=== PATIENT | male | born 1960 | race Hispanic/Latino ===

== ENCOUNTER 2020-04-18 00:04 | Emergency (ER) | payer OTHER ==
[~2020-04-18] VITALS: Ht 175.3 cm; Wt 88.5 kg
[2020-04-18] MEDS ORDERED: ACETAMINOPHEN 325 MG TAB PO ONE (00:45)
--- NOTE | 2020-04-18 00:51 | Emergency Department Note ---
History of Present Illnes History of Present Illness Chief Complaint: COVID PUI History of Present Illness This is a 59 year old male PRESENTS TO THE ER C/O COVID-LIKE SYMPTOMS; REPORTS FEVER/CHILLS, BODY ACHES, HEADACHE, SORE THROAT AND DRY COUGH X1 WEEK; REPORTS FIRST COVID TEST WAS NEGATIVE ON 04/12/20 AND PENDING RESULTS FOR SWAB OBTAINED ON 04/14/20; PT DENIES CP OR SOB; V/S/S; SPO2 97% RA; RESP EVEN/UNLABORED; T EMP 100.9 IN TRIAGE;. Historian: Patient Arrival Mode: Car Onset (how long ago): day(s) (7) Location: ALL OVER Quality: BODY ACHES, FEVER, DRY COUGH, SORE THROAT Radiation: Reports non-radiation Severity: mild Onset quality: gradual Duration (how long): day(s) (7) Timing of current episode: constant Progression: unchanged Chronicity: new Context: Reports recent illness (FEVER, CHILLS, BODY ACHES, COUGH) Relieving factors: none Exacerbating factors: none Associated symptoms: Reports cough, Reports fever/chills, Reports nausea/ vomiting (NO VOMITING) Treatments prior to arrival: none Past Medical/Family History Physician Review I have reviewed the patient's past medical and family history. Any updates have been documented here. Past Medical History Recent Fever: Yes Clinical Suspicion of Infectio: Yes New/Unexplained Change in Ment: No Past Medical History: None Past Surgical History: None Social History Smoking Cessation: Never Smoker Any Illegal Drug Use: No Physically hurt or threatened: No Family History Family history of heart diseas: No Other Any Pre-Existing Lines (PICC,: No Review of Systems Review of Systems Constitutional: Reports as per HPI EENTM: Reports no symptoms Cardiovascular: Reports no symptoms Respiratory: Reports as per HPI Gastrointestinal: Reports no symptoms Genitourinary: Reports no symptoms Musculoskeletal: Reports no symptoms Integumentary: Reports no symptoms Neurological: Reports no symptoms Psychological: Reports no symptoms Endocrine: Reports no symptoms Hematological/Lymphatic: Reports no symptoms Physical Exam Related Data Allergies: Uncoded Allergies: PENICLLIN (Allergy, Mild, RASH, 07/02/17) Triage Vital Signs Vital Signs Date Time Temp Pulse Resp B/P (MAP) Pulse Ox O2 Delivery O2 Flow Rate FiO2 04/18/20 00:25 100.9 98 20 135/82 97 Room Air Vital signs reviewed: Yes Physical Exam CONSTITUTIONAL Constitutional: Present well-developed, Present well-nourished HENT HENT: Present normocephalic, Present atraumatic, Present oropharynx c lear/moist, Present nose normal HENT L/R: Present left ext ear normal, Present right ext ear normal EYES Eyes: Reports PERRL, Reports conjunctivae normal NECK Neck: Present ROM normal PULMONARY Pulmonary: Present effort normal, Present breath sounds normal CARDIOVASCULAR Cardiovascular: Present regular rhythm, Present heart sounds normal, Present capillary refill normal, Present normal rate GASTROINTESTINAL Abdominal: Present soft, Present nontender, Present bowel sounds normal GENITOURINARY Genitourinary: Present exam deferred SKIN Skin: Present warm, Present dry MUSCULOSKELETAL Musculoskeletal: Present ROM normal NEUROLOGICAL Neurological: Present alert, Present oriented x 3, Present no gross motor or sensory deficits PSYCHOLOGICAL Psychological: Present mood/affect normal, Present judgement normal Results Imaging Imaging results reviewed: Yes Impressions Procedure: [id number] DX/CHEST SINGLE (PORTABLE) Exam Date: 04/18/20 Exam Time: 040 REPORT STATUS: Signed Examination: Single AP view of the chest. COMPARISON: None. INDICATION: Cough, fever, body aches IMPRESSION: 1. Lines and Tubes: None 2. Lungs are well inflated. Patchy bilateral interstitial and alveolar opacities, worse in the left midlung likely representing multifocal pneumonia, including viral 3. Cardiomediastinal silhouette is normal. Pulmonary vasculature is normal. 4. No acute bony abnormalities. Signed by: Dr. Magaly Kincaid M.D. on 04/18/2020 4:19 AM Dictated By: MAGALY KINCAID MD 8 Transcribed By: MONICA on 04/18/20418 COPY TO: DAVID STEPHENS MD~ Assessment & Plan Medical Decision Making MDM PT WITH VIRAL SYMPTOMS/COVID SYMPTOMS CXR ORDERED TO EVAL FOR PNEUMONIA TYLENOL 975 MG PO ORDERED PT DISCHARGED HOME PRESCRIBED ZPAK INSTRUCTED TO QUARANTINE FOR NEXT 14 DAYS. INSTRUCTED TO LAY AND SLEEP ON SIDES AND STOMACH NOT BACK Reassessment Reassessment time: 04:24 Reassessment PT STILL IN NO DISTRESS, OXYGEN SATURATION 96% ON ROOM AIR, RR 18 Assessment & Plan Final Impression: (1) COVID-19 (2) Viral pneumonia Depart Disposition: ADMITTED Last Vital Signs Date Time Temp Pulse Resp B/P (MAP) Pulse Ox O2 Delivery O2 Flow Rate FiO2 04/18/20 00:25 100.9 98 20 135/82 97 Room Air Home Meds No Active Prescriptions or Reported Meds Medications in the ED Acetaminophen 975 mg ONCE ONCE PO Last administered on 04/18/20at 00:42; Admin Dose 975 MG; Start 04/18/20 at 00:45; Stop 04/18/20 at 00:46; Status DC DAVID STEPHENS MD Apr 18, 2020 00:51
--- NOTE | 2020-04-18 04:22 | Diagnostic Imaging Report ---
Examination: Single AP view of the chest. COMPARISON: None. INDICATION: Cough, fever, body aches IMPRESSION: 1. Lines and Tubes: None 2. Lungs are well inflated. Patchy bilateral interstitial and alveolar opacities, worse in the left midlung likely representing multifocal pneumonia, including viral 3. Cardiomediastinal silhouette is normal. Pulmonary vasculature is normal. 4. No acute bony abnormalities. Signed by: Dr. Oskar Francisco M.D. on 04/18/2020 4:19 AM
[2020-04-18 04:34] VITALS: BP 136/87
== END 2020-04-18 04:40 | disposition home or self-care (01) ==
LOC: ER 00:33
DX: U07.1 COVID-19 (principal); J12.9 Viral pneumonia, unspecified; R05 Cough
CPT/HCPCS: 71045; 99283

== ENCOUNTER 2020-04-27 10:30 | Inpatient (IN) | payer OTHER ==
[~2020-04-27] VITALS: Ht 175.3 cm; Wt 88.5 kg
[2020-04-27] MEDS ORDERED: SODIUM CHLORIDE 0.9% 1000ML 1,000 ML IV STA (10:37)
[2020-04-27] MEDS ORDERED: DEXAMETHASONE SOD PHOS INJ 4 MG/ML VIAL IV ONE (10:45)
[2020-04-27 10:55] LABS: BASOPHILS # (AUTO) 0.1 (0.0-0.1); BASOPHILS % 0.9 % (0.0-1.0); EOSINOPHILS # (AUTO) 0.2 (0.0-0.4); EOSINOPHILS % 2.3 % (0.0-6.0); HEMATOCRIT 46.7 % (38.2-49.6); HEMOGLOBIN 15.7 g/dL (14.0-18.0); LYMPHOCYTES # (AUTO) 1.4 (1.0-3.2); LYMPHOCYTES % 14.4 % (18.0-39.1); MEAN CORPUSCULAR HGB CONC 33.6 g/dL (31-35); MEAN CORPUSCULAR VOLUME 95.1 fL (81-99); MONOCYTES # (AUTO) 0.8 (0.2-0.8); MONOCYTES % 8.7 % (4.4-11.3); NEUTROPHILS # (AUTO) 6.9 (2.1-6.9); NEUTROPHILS % 71.7 % (38.7-80.0); PLATELET COUNT 530 x10e3/uL (140-360); RED BLOOD COUNT 4.91 x10e6/uL (4.3-5.7); RED CELL DISTRIBUTION WIDTH 13.6 % (11.7-14.4)
[2020-04-27] MEDS ORDERED: ACETAMINOPHEN 325 MG TAB PO ONE (11:00)
[2020-04-27] MEDS ORDERED: ALBUTEROL SULFATE HFA 8GM INHALATION AEROSOL INH PRN (11:15)
[2020-04-27] MEDS ORDERED: DEXAMETHASONE SOD PHOS INJ 4 MG/ML VIAL ONE (11:31)
[2020-04-27 11:33] LABS: ALANINE AMINOTRANSFERASE 92 IU/L (0-55); ALBUMIN 2.4 g/dL (3.5-5.0); ALBUMIN/GLOBULIN RATIO 0.5 (0.8-2.0); ALKALINE PHOSPHATASE 245 IU/L (40-150); ANION GAP 16.3 mmol/L (8-16); BLOOD UREA NITROGEN 9 mg/dL (7-26); BUN/CREATININE RATIO 12 (6-25); CALCIUM 8.5 mg/dL (8.4-10.2); CARBON DIOXIDE 21 mmol/L (22-29); CHLORIDE 105 mmol/L (98-107); CREATINE KINASE 47 IU/L (30-200); CREATININE, SERUM 0.75 mg/dL (0.72-1.25); EST GLOMERULAR FILTRATION RATE > 60 ML/MIN (60-); GLUCOSE 149 mg/dL (74-118); POTASSIUM 4.3 mmol/L (3.5-5.1); PROTHROMBIN TIME 13.7 seconds (11.9-14.5); SODIUM 138 mmol/L (136-145)
[2020-04-27 11:34] LABS: PARTIAL THROMBOPLASTIN TIME 28.6 seconds (23.8-35.5)
--- NOTE | 2020-04-27 11:46 | Emergency Department Note ---
History of Present Illnes History of Present Illness Chief Complaint: COVID PUI History of Present Illness This is a 59 year old male pt c/o covid positive 6 days ago, cough/F/C/body aches/N/V/D x 2 weeks now with progressive sob increased over last 4 days. non smoker. pt tachypneic and hypoxic on arrival with O2 sats 83% room air. pt aaoxx4. ambulatory. pt states any excertion increased fatigue and sob. Historian: Patient Arrival Mode: Car Lining Repairer Required: No Onset (how long ago): week(s) (2) Location: lungs Quality: SOB Radiation: Reports non-radiation Severity: moderate Onset quality: gradual Duration (how long): day(s) (sob) Timing of current episode: constant Progression: worsening Chronicity: new Context: Reports recent illness Relieving factors: none Exacerbating factors: none Associated symptoms: Reports denies other symptoms Treatments prior to arrival: none Past Medical/Family History Physician Review I have reviewed the patient's past medical and family history. Any updates have been documented here. Past Medical History Recent Fever: No Clinical Suspicion of Infectio: No New/Unexplained Change in Ment: No Past Medical History: None Past Surgical History: None Social History Smoking Cessation: Never Smoker Counseling Performed: No Alcohol Use: None Any Illegal Drug Use: No TB Exposure/Symptoms: No Physically hurt or threatened: No Family History Family history of heart diseas: No Other Any Pre-Existing Lines (PICC,: No Review of Systems Review of Systems Constitutional: Reports as per HPI EENTM: Reports no symptoms Cardiovascular: Reports no symptoms Respiratory: Reports as per HPI, Reports cough, Reports dyspnea, Reports dyspnea on exertion Gastrointestinal: Reports no symptoms Genitourinary: Reports no symptoms Musculoskeletal: Reports as per HPI Integumentary: Reports no symptoms Neurological: Reports no symptoms Psychological: Reports no symptoms Endocrine: Reports no symptoms Hematological/Lymphatic: Reports no symptoms Physical Exam Related Data Allergies: Uncoded Allergies: PENICLLIN (Allergy, Mild, RASH, 07/02/17) Triage Vital Signs Vital Signs Date Time Temp Pulse Resp B/P (MAP) Pulse Ox O2 Delivery O2 Flow Rate FiO2 04/27/20 10:52 99.3 104 48 148/85 83 Room Air 04/27/20 11:01 6.0 Vital signs reviewed: Yes Physical Exam CONSTITUTIONAL Constitutional: Present well-developed, Present well-nourished HENT HENT: Present normocephalic, Present atraumatic, Present oropharynx clear/moist, Present nose normal HENT L/R: Present left ext ear normal, Present right ext ear normal EYES Eyes: Reports PERRL, Reports conjunctivae normal NECK Neck: Present ROM normal PULMONARY Pulmonary: Present respiratory distress (tachypnea), Present other (decr BS's throughout) CARDIOVASCULAR Cardiovascular: Present regular rhythm, Present heart sounds normal, Present capillary refill normal, Present normal rate GASTROINTESTINAL Abdominal: Present soft, Present nontender, Present bowel sounds normal GENITOURINARY Genitourinary: Present exam deferred SKIN Skin: Present warm, Present dry MUSCULOSKELETAL Musculoskeletal: Present ROM normal NEUROLOGICAL Neurological: Present alert, Present oriented x 3, Present no gross motor or sensory deficits PSYCHOLOGICAL Psychological: Present mood/affect normal, Present judgement normal Results Laboratory Result Diagram: 04/27/20 1040 04/27/20 1040 Laboratory Laboratory Tests Test 04/27/20 10:40 White Blood Count 9.59 x10e3/uL (4.8-10.8) Red Blood Count 4.91 x10e6/uL (4.3-5.7) Hemoglobin 15.7 g/dL (14.0-18.0) Hematocrit 46.7 % (38.2-49.6) Mean Corpuscular Volume 95.1 fL (81-99) Mean Corpuscular Hemoglobin 32.0 pg (28-32) Mean Corpuscular Hemoglobin Concent 33.6 g/dL (31-35) Red Cell Distribution Width 13.6 % (11.7-14.4) Platelet Count 530 x10e3/uL (140-360) Neutrophils (%) (Auto) 71.7 % (38.7-80.0) Lymphocytes (%) (Auto) 14.4 % (18.0-39.1) Monocytes (%) (Auto) 8.7 % (4.4-11.3) Eosinophils (%) (Auto) 2.3 % (0.0-6.0) Basophils (%) (Auto) 0.9 % (0.0-1.0) Neutrophils # (Auto) 6.9 (2.1-6.9) Lymphocytes # (Auto) 1.4 (1.0-3.2) Monocytes # (Auto) 0.8 (0.2-0.8) Eosinophils # (Auto) 0.2 (0.0-0.4) Basophils # (Auto) 0.1 (0.0-0.1) Absolute Immature Granulocyte (auto 0.19 x10e3/uL (0-0.1) Prothrombin Time 13.7 seconds (11.9-14.5) Prothromb Time International Ratio 1.00 Activated Partial Thromboplast Time 28.6 seconds (23.8-35.5) Sodium Level 138 mmol/L (136-145) Potassium Level 4.3 mmol/L (3.5-5.1) Chloride Level 105 mmol/L (98-107) Carbon Dioxide Level 21 mmol/L (22-29) Anion Gap 16.3 mmol/L (8-16) Blood Urea Nitrogen 9 mg/dL (7-26) Creatinine 0.75 mg/dL (0.72-1.25) Estimat Glomerular Filtration Rate > 60 ML/MIN (60-) BUN/Creatinine Ratio 12 (6-25) Glucose Level 149 mg/dL (74-118) Calcium Level 8.5 mg/dL (8.4-10.2) Total Bilirubin 0.5 mg/dL (0.2-1.2) Aspartate Amino Transf (AST/SGOT) 54 IU/L (5-34) Alanine Aminotransferase (ALT/SGPT) 92 IU/L (0-55) Alkaline Phosphatase 245 IU/L (40-150) Creatine Kinase 47 IU/L (30-200) Creatine Kinase MB 1.10 ng/mL (0-5.0) Troponin I 0.004 ng/mL (0-0.300) B-Type Natriuretic Peptide < 10.0 pg/mL (0-100) Total Protein 7.6 g/dL (6.5-8.1) Albumin 2.4 g/dL (3.5-5.0) Globulin 5.2 g/dL (2.3-3.5) Albumin/Globulin Ratio 0.5 (0.8-2.0) Lab results reviewed: Yes Imaging Imaging results reviewed: Yes Impressions EXAMINATION: CHEST SINGLE (PORTABLE) INDICATION: Shortness of breath, cough COMPARISON: Chest radiograph 04/18/2020 FINDINGS: LINES/TUBES:EKG leads overlie the chest. LUNGS:The lungs are moderately inflated. Interval increase in bilateral predominantly peripheral multifocal consolidative opacities. PLEURA:No pleural effusion or pneumothorax. MEDIASTINUM:The cardiomediastinal silhouette appears unchanged in size and shape. BONES/SOFT TISSUES:No acute osseous injury. ABDOMEN:No free air under the diaphragm. IMPRESSION: Interval increase in bilateral multifocal pneumonia. Signed by: Mulu Hauser MD on 04/27/2020 11:47 AM Procedures 12 Lead ECG Interpretation ECG Interpretation : ECG: ECG 1 Lining Repairer: Interpreted by ED physician Date: Apr 27, 2020 Time: 10:38 Rhythm: sinus tachycardia (102) Rate: tachycardia (102) QRS axis: normal ST segments normal: Yes T waves normal: Yes Clinical Impression: abnormal ECG Critical Care Time Total Critical Care Time (min): 30 Critcal care necessary due to: respiratory failure Critcal care time spent by me: discussion w consultants, discussion w primary provider, evaluation patient response to tx, examination of patient, order/perform tx or interventions, order/review laboratory studies, pulse oximetry, re-evaluation of patient condition Assessment & Plan Medical Decision Making MDM pt with known COVID + pneumonia now with incr SOB, O2 sat 83% on RA, tachypneic - check cbc, chem, cardiacs, bnp, ecg, cxr - r/o bacterial pneumonia, chf, STEMI/NSTEMI, electrolyte abnl, renal insuff. Pt sat now 94% on 6L NC - will initiate AirVo2 high-flow O2, Rocephin/Azithro, Decadron IV 6 mg Reassessment Reassessment d/w Dr Ambrocio for admission, Stephen Elmore Assessment & Plan Final Impression: (1) Pneumonia due to COVID-19 virus (2) Hypoxia Depart Disposition: ADMITTED Last Vital Signs Date Time Temp Pulse Resp B/P (MAP) Pulse Ox O2 Delivery O2 Flow Rate FiO2 04/27/20 11:02 102 97 Nasal Cannula 04/27/20 11:01 6.0 04/27/20 10:52 99.3 48 Home Meds No Active Prescriptions or Reported Meds Medications in the ED Sodium Chloride 1,000 ml @ 0 mls/hr Q0M STAT IV ; Start 04/27/20 at 10:37; Stop 04/27/20 at 10:38 Azithromycin 250 ml @ 250 mls/hr Q24H IV ; Start 04/27/20 at 10:45; Stop 05/04/20 at 10:44 Dexamethasone Sodium Phosphate 6 mg NOW ONCE IV ; Start 04/27/20 at 10:45; Stop 04/27/20 at 10:46 Acetaminophen 975 mg ONCE ONCE PO ; Start 04/27/20 at 11:00; Stop 04/27/20 at 11:01 Sodium Chloride 1,000 ml @ 125 mls/hr Q8H IV ; Start 04/27/20 at 11:15; Stop 04/27/20 at 19:14; Status UNV Albuterol 2 gm RQ2H PRN INH SHORTNESS OF BREATH; Start 04/27/20 at 11:15; Stop 05/27/20 at 11:14; Status UNV PAWAN KRUGER MD Apr 27, 2020 11:46
--- NOTE | 2020-04-27 11:51 | Diagnostic Imaging Report ---
EXAMINATION: CHEST SINGLE (PORTABLE) INDICATION: Shortness of breath, cough COMPARISON: Chest radiograph 04/18/2020 FINDINGS: LINES/TUBES:EKG leads overlie the chest. LUNGS:The lungs are moderately inflated. Interval increase in bilateral predominantly peripheral multifocal consolidative opacities. PLEURA:No pleural effusion or pneumothorax. MEDIASTINUM:The cardiomediastinal silhouette appears unchanged in size and shape. BONES/SOFT TISSUES:No acute osseous injury. ABDOMEN:No free air under the diaphragm. IMPRESSION: Interval increase in bilateral multifocal pneumonia. Signed by: Mulu Hauser MD on 04/27/2020 11:47 AM
[2020-04-27] MEDS: AZITHROMYCIN 500MG/NS 250 ML 250 ML IV SCH (12:15)
[2020-04-27] MEDS: CEFTRIAXONE SOD 1 GM/NS 50 ML 50 ML IV SCH (12:16)
[2020-04-27] MEDS: SODIUM CHLORIDE 0.9% 1000ML 1,000 ML IV SCH ×2 (13:13→17:33)
--- NOTE | 2020-04-27 15:06 | NUR ---
Recvd patient from ER, AAOx3, ON O2 with AIRVO 40L, On Telemetry, denies any oain, no distress noted, call light in reach. Dr Leon here to see patient
[2020-04-27 15:45] VITALS: BP 120/84
[2020-04-27] MEDS ORDERED: ENOXAPARIN INJ 80 MG/0.8 ML SYR SC SCH (17:00)
--- NOTE | 2020-04-27 18:02 | NUR ---
Patient back from CT , Stable, Notified Dr Lenny Elmore regarding the consult.
--- NOTE | 2020-04-27 18:10 | Diagnostic Imaging Report ---
EXAM: CT Chest WITH contrast 04/27/2020 5:41 PM INDICATION: Dyspnea and chest pain clinically concerning for pulmonary embolism. COMPARISON: Same day chest x-rays. TECHNIQUE: Chest was scanned utilizing a multidetector helical scanner from the lung apex through the level of the adrenal glands with administration of IV contrast. Coronal and sagittal reformations were obtained. Routine protocol was performed. IV CONTRAST: 100 mL of Omnipaque 300 COMPLICATIONS: None RADIATION DOSE: Total DLP: 469.82 mGy*cm Estimated effective dose: (DLP x 0.014 x size factor) mSv CTDIvol has been reviewed. It is below the limits set by the Radiation Protocol Committee (RPC). Dose modulation, iterative reconstruction, and/or weight based adjustment of the mA/kV was utilized to reduce the radiation dose to as low as reasonably achievable. FINDINGS: LINES/ TUBES: None. VASCULAR: There are no filling defects within the pulmonary arteries to the segmental level. The main pulmonary artery has normal caliber measuring 2.4 cm. The thoracic aorta has normal enhancement. The ascending and descending aorta have normal caliber measuring 3.2 cm and 2.6 cm, respectively. LUNGS AND AIRWAYS: There is multifocal consolidative and groundglass opacities throughout both lungs. The central airways are patent and the trachea is midline. PLEURA: The pleural spaces are clear. HEART AND MEDIASTINUM: The thyroid gland is normal. There are multiple prominent mediastinal lymph nodes measuring up to 7 mm in short axis, none of which meet criteria for pathologic enlargement. No axillary lymphadenopathy. The heart is normal in size. There is no pericardial effusion. UPPER ABDOMEN: Unremarkable. BONES: There is multilevel degenerative disease of the spine with no suspicious osteolytic or osteoblastic lesions. SOFT TISSUES: Unremarkable. IMPRESSION: 1. No evidence of pulmonary embolism. 2. Consolidative and patchy airspace opacities throughout both lungs which most likely represents multifocal pneumonia, likely viral. Prominent mediastinal lymph nodes are likely reactive. An underlying mass cannot be excluded. Recommend repeat chest CT in 3 months to ensure resolution of these findings. Signed by: Kelsi Funez MD on 04/27/2020 6:06 PM
[2020-04-27] MEDS ORDERED: DEXTROSE 50% SYRINGE 50 ML IV PRN (19:00)
[2020-04-27] MEDS ORDERED: ACETAMINOPHEN 325 MG TAB PO PRN (19:00)
[2020-04-27] MEDS ORDERED: ONDANSETRON HCL INJ 2MG/ML 2ML 2 MG/ML VIAL IV PRN (19:15)
[2020-04-27] MEDS ORDERED: HYDROCODONE/CHLORPHENIRAMINE 5 ML LIQCR PO PRN (19:15)
[2020-04-27 20:00] VITALS: BP 125/88
--- NOTE | 2020-04-27 20:00 | Consultation ---
DATE OF CONSULTATION: HISTORY OF PRESENT ILLNESS: This is a 59-year-old male who had COVID test 6 days ago, was positive, cough, and shortness of breath. He is telling me he has been sick for more than 2 weeks with fever, chills, nausea, vomiting, body aches, but the cough and shortness of breath started few days ago. PAST MEDICAL HISTORY: Denies. PAST SURGICAL HISTORY: Denies. ALLERGIES: NKA. SOCIAL HISTORY: There is no smoking, drug abuse, or alcohol abuse. FAMILY HISTORY: Unremarkable. LABORATORY DATA: White count is 9.5, hemoglobin 15. COVID is still pending. Sodium 138, potassium 4.3. Creatinine 0.75. Chest x-ray showed bilateral multifocal pneumonia. PHYSICAL EXAMINATION: GENERAL: He is currently alert and oriented. VITAL SIGNS: Stable, currently afebrile. HEENT: He is not icteric. NECK: Supple. CHEST: Clear. HEART: S1, S2. ABDOMEN: Soft. IMPRESSION: 1. Pneumonia, concerned it is COVID-19 pneumonia. Put on Rocephin 1 g daily 5 days, azithromycin 500 mg daily for 3 days, Lovenox 0.5 mg/kg q.12 hours. We will add dexamethasone 6 mg daily for 10 days. 2. Shortness of breath. We will obtain CTA to rule out pulmonary embolism. 3. We will follow. MD GRZEGORZ Smalls/RADHA /[id number]
[2020-04-27] MEDS ORDERED: HYDRALAZINE HCL 20 MG/ML VIAL IV PRN (20:15)
[2020-04-27] MEDS: INSULIN REGULAR, HUMAN 100 UNIT/1 ML 3ML VIAL SQ SCH (21:00)
[2020-04-27] MEDS: ASCORBIC ACID 500 MG TAB PO SCH (21:19)
--- NOTE | 2020-04-27 21:36 | Consultation ---
DATE OF CONSULTATION: CHIEF COMPLAINT: Dyspnea and cough. HISTORY OF PRESENT ILLNESS: The patient reports difficulty breathing for the past 4 days. He also says he tested positive for COVID. He also notes some prior fevers and congestion. He is not having any abdominal pain. There is no nausea or vomiting. PAST MEDICAL HISTORY: 1. No prior history of asthma or COPD. 2. No prior history of cardiac disease. 3. No prior history of asthma. ALLERGIES: THE PATIENT IS ALLERGIC TO PENICILLIN. PAST SURGICAL HISTORY: Noncontributory. FAMILY HISTORY: Noncontributory. SOCIAL HISTORY: The patient is not an active smoker or drinker. REVIEW OF SYSTEMS: There is no history of fevers. He is having shortness of breath. He reports some cough. He has no chest pain. There is no nausea or vomiting. He has no leg edema. PHYSICAL EXAMINATION: VITAL SIGNS: The patient is afebrile. The blood pressure is 123/82 and saturation is 99%. He is on an Airvo at 40 L with 60%. HEENT: Shows no facial swelling or erythema. LYMPHATIC: Shows no submandibular, cervical, or supraclavicular adenopathy. CARDIAC: Reveals a regular rate and rhythm with normal S1 and S2. LUNGS: Auscultation of lungs reveals rhonchorous breath sounds bilaterally. There is no wheezing. ABDOMEN: Soft and nontender. There is no rebound or guarding. EXTREMITIES: Shows no leg edema or calf tenderness. There is no cyanosis or clubbing. SKIN: Shows no rashes. NEUROLOGICAL: Shows no focal abnormalities. LABORATORY DATA: White blood cell count is 9.6 and the hemoglobin is 15.7. The platelet count is 530. BUN to creatinine ratio is normal. The carbon dioxide is 21. The AST is 54 and the ALT is 92. Albumin is 2.4. RADIOGRAPHIC DATA: Chest CT scan shows patchy bilateral airspace disease in both lungs. IMPRESSION: 1. Acute respiratory failure. 2. Viral pneumonia and COVID-19 infection. 3. Metabolic acidosis. 4. Hyperglycemia. 5. Viral hepatitis. PLAN: 1. Continue antibiotics. 2. Rescue inhaler as needed. 3. Lovenox. 4. Dexamethasone for 10 days. 5. Judicious use of IV fluids. 6. Monitor and control blood sugars. MD DIEGO Young/MODL /[id number]
[2020-04-27 22:55] VITALS: BP 125/88
[2020-04-28] VITALS (8 sets, daily range): BP systolic 115–134; BP diastolic 83–96
[2020-04-28 04:17] LABS: BASOPHILS % 0.3 % (0.0-1.0); EOSINOPHILS % 0.4 % (0.0-6.0); HEMATOCRIT 40.5 % (38.2-49.6); HEMOGLOBIN 13.9 g/dL (14.0-18.0); LYMPHOCYTES # (AUTO) 1.4 (1.0-3.2); LYMPHOCYTES % 14.9 % (18.0-39.1); MEAN CORPUSCULAR HEMOGLOBIN 33.9 pg (28-32); MEAN CORPUSCULAR HGB CONC 34.3 g/dL (31-35); MEAN CORPUSCULAR VOLUME 98.8 fL (81-99); MONOCYTES # (AUTO) 0.6 (0.2-0.8); MONOCYTES % 6.8 % (4.4-11.3); NEUTROPHILS # (AUTO) 7.1 (2.1-6.9); NEUTROPHILS % 76.5 % (38.7-80.0); PLATELET COUNT 485 x10e3/uL (140-360); RED CELL DISTRIBUTION WIDTH 13.3 % (11.7-14.4)
[2020-04-28] MEDS: ENOXAPARIN SOD INJ 40 MG/0.4 ML SYR SC SCH ×2 (04:17→16:05)
[2020-04-28 04:34] LABS: ALANINE AMINOTRANSFERASE 92 IU/L (0-55); ALBUMIN 2.1 g/dL (3.5-5.0); ALBUMIN/GLOBULIN RATIO 0.5 (0.8-2.0); ALKALINE PHOSPHATASE 244 IU/L (40-150); ANION GAP 13.6 mmol/L (8-16); BLOOD UREA NITROGEN 12 mg/dL (7-26); BUN/CREATININE RATIO 17 (6-25); CALCIUM 7.9 mg/dL (8.4-10.2); CARBON DIOXIDE 21 mmol/L (22-29); CHLORIDE 108 mmol/L (98-107); CREATININE, SERUM 0.72 mg/dL (0.72-1.25); EST GLOMERULAR FILTRATION RATE > 60 ML/MIN (60-); GLUCOSE 117 mg/dL (74-118); POTASSIUM 4.6 mmol/L (3.5-5.1); SODIUM 138 mmol/L (136-145)
[2020-04-28 04:42] LABS: CREATINE KINASE 29 IU/L (30-200)
[2020-04-28] MEDS: INSULIN REGULAR, HUMAN 100 UNIT/1 ML 3ML VIAL SQ SCH ×4 (07:30→20:40)
[2020-04-28] MEDS ORDERED: SODIUM CHLORIDE 0.9% 250ML 250 ML ONE (07:49)
[2020-04-28] MEDS: FAMOTIDINE 20 MG TAB PO SCH ×2 (08:52→16:05)
[2020-04-28] MEDS: CHOLECALCIFEROL 400 UNIT TAB PO SCH (08:52)
[2020-04-28] MEDS: ASCORBIC ACID 500 MG TAB PO SCH ×2 (08:52→16:05)
[2020-04-28] MEDS: ZINC SULFATE 220 MG CAP PO SCH ×2 (08:52→16:05)
[2020-04-28] MEDS: DEXAMETHASONE SOD PHOS INJ 4 MG/ML VIAL IV SCH (08:52)
[2020-04-28] MEDS: AZITHROMYCIN 500MG/NS 250 ML 250 ML IV SCH (10:09)
[2020-04-28] MEDS ORDERED: IOPAMIDOL 300MG/ML 100 ML INFUS..BTL IV ONE (10:55)
[2020-04-28] MEDS ORDERED: SODIUM CHLORIDE 0.9% INJ 50 ML BAG IV ONE (10:56)
--- NOTE | 2020-04-28 10:58 | Progress Note ---
DATE: SUBJECTIVE: The patient is afebrile. He has required oxygen and is now on an Airvo at 40 L with 91% oxygen. PHYSICAL EXAMINATION: VITAL SIGNS: The patient is afebrile. The blood pressure is 126/86 and saturation is 100% on the Airvo. Pulse is 94. HEENT: Shows no facial swelling or erythema. CARDIAC: Reveals regular rate and rhythm with normal S1 and S2. LUNGS: Auscultation of lungs reveals crackles at the bases. There is no wheezing. ABDOMEN: Soft and nontender. There is no rebound or guarding. EXTREMITIES: Shows no leg edema or calf tenderness. There is no cyanosis or clubbing. SKIN: Shows no rashes. NEUROLOGICAL: Shows no focal abnormalities. LABORATORY DATA: White blood cell count is 9.22 and the hemoglobin is 13.9. The platelet count is 485. BUN to creatinine ratio is normal. Other electrolytes are within normal limits. Albumin is 2.1. IMPRESSION: 1. Acute respiratory failure. 2. Viral pneumonia and COVID-19 infection. 3. Hyperglycemia. 4. Viral hepatitis. PLAN: 1. Continue Airvo. 2. Transfer to [facility]. 3. Lovenox. 4. Dexamethasone. 5. Monitor and control blood sugars. 6. Speech therapy evaluation. Efrain Elmore MD [facility]/MODL /[id number]
[2020-04-28] MEDS: CEFTRIAXONE SOD 1 GM/NS 50 ML 50 ML IV SCH (11:58)
--- NOTE | 2020-04-28 17:48 | NUR ---
1. Pneumonia, concerned it is COVID-19 pneumonia. Put on Rocephin 1 g daily 5 days, azithromycin 500 mg daily for 3 days, Lovenox 0.5 mg/kg q.12 hours. We will add dexamethasone 6 mg daily for 10 days. 2. Shortness of breath. We will obtain CTA to rule out pulmonary embolism. 3. We will follow.[id number]
--- NOTE | 2020-04-28 19:00 | NUR ---
Report given to oncoming nurse of patient's status. No s/s of acute distress noted. Side rails upx2, call light within reach.
--- NOTE | 2020-04-28 19:50 | NUR ---
shift report received from Kendy MOYA, patient seen sitting high fowlers position in bed, with oxygen therapy in place, no distress noted, awake alert, pending order for IMCU placement patent made aware that as soon as bed available he will be moved , remain on telemetry for safety, patient placed on cont pulse oximetry for added safety
--- NOTE | 2020-04-28 19:50 | NUR ---
TELEMETRY REPORTING SR 90'S, PATIENT PLACED ON CONT PULSE OXIMETRY FOR ADDED SAFETY UNTIL TRANSFERRED
--- NOTE | 2020-04-28 19:55 | Progress Note ---
DATE: SUBJECTIVE: Mr. Pelayo is on oxygen 40 with Airvo at 91%. PHYSICAL EXAMINATION: GENERAL: Alert and oriented. VITAL SIGNS: Stable, afebrile. HEENT: He is not icteric. NECK: Supple. CHEST: Clear. IMPRESSION: Coronavirus disease-19 pneumonia. The patient is going to be transferred to [facility]. Continued oxygenation. Continue plan as ordered. Rocephin 1 g daily, azithromycin, and Decadron. The patient who has been sick for more than 2 weeks now. We will follow. MD GRZEGORZ Smalls/MODL /[id number]
--- NOTE | 2020-04-28 20:20 | NUR ---
MD WHITE MADE AWARE THAT PATIENT WILL BE TRANSFERRED TO [facility] ICU SOON BED MADE AVAILABLE, CHUTE GREASER AND CHARGE MADE AWARE
--- NOTE | 2020-04-28 21:18 | NUR ---
SPOKE TO RUBBER DOWN AND MADE AWARE OF NEGATIVE COVID SWAB ON 04/27/20. RECEIVED VERBAL OK FROM DR. CHAU'S RUBBER DOWN, KOKO Neff, TO MOVE TO COVID ICU AND ORDER TO RE-SWAB.
--- NOTE | 2020-04-28 23:25 | NUR ---
PER BILINGUAL SALES CONSULTANT SHIRLEY PATIENT IS TO BE TRANSFERRED TO COVID ICU UNIT, REPORT GIVEN TO EDGE CUTTER, PT PENDING TRANFER TO CICU BED 14, PATIENT WILL BE RETESTED FOR COVID-19 BEFORE TRANSFER PER MD ORDER
[2020-04-29] VITALS (27 sets, daily range): BP systolic 89–125; BP diastolic 52–84
--- NOTE | 2020-04-29 00:24 | NUR ---
ivettid reswab completed, pt transferred via wheelchair by FELLER MACHINE OPERATOR DAMARIS AND RT TO CICU BED 14
--- NOTE | 2020-04-29 02:10 | NUR ---
Pump Operator called pt's and spoke with daughter, Clementina ([phone]), to offer emotional/spiritual support. Pt's daughter requested clinical information concerning her father's status. Forwarded her request to clinical staff. Provided prayer and information on how to reach audience coordinator. Will follow as able. KIMBERLY [facility] Department O: [phone]
[2020-04-29] MEDS: ENOXAPARIN SOD INJ 40 MG/0.4 ML SYR SC SCH ×2 (05:06→17:38)
[2020-04-29 07:01] LABS: ALANINE AMINOTRANSFERASE 102 IU/L (0-55); ALBUMIN 2.3 g/dL (3.5-5.0); ALBUMIN/GLOBULIN RATIO 0.5 (0.8-2.0); ALKALINE PHOSPHATASE 247 IU/L (40-150); ANION GAP 13.3 mmol/L (8-16); BLOOD UREA NITROGEN 16 mg/dL (7-26); BUN/CREATININE RATIO 22 (6-25); CALCIUM 8.2 mg/dL (8.4-10.2); CARBON DIOXIDE 23 mmol/L (22-29); CHLORIDE 107 mmol/L (98-107); CREATININE, SERUM 0.73 mg/dL (0.72-1.25); EST GLOMERULAR FILTRATION RATE > 60 ML/MIN (60-); GLUCOSE 91 mg/dL (74-118); POTASSIUM 4.3 mmol/L (3.5-5.1); SODIUM 139 mmol/L (136-145)
[2020-04-29 07:23] LABS: BASOPHILS # (AUTO) 0.1 (0.0-0.1); BASOPHILS % 0.5 % (0.0-1.0); EOSINOPHILS # (AUTO) 0.1 (0.0-0.4); EOSINOPHILS % 0.9 % (0.0-6.0); HEMATOCRIT 42.3 % (38.2-49.6); HEMOGLOBIN 14.6 g/dL (14.0-18.0); LYMPHOCYTES # (AUTO) 2.1 (1.0-3.2); LYMPHOCYTES % 17.3 % (18.0-39.1); MEAN CORPUSCULAR HGB CONC 34.5 g/dL (31-35); MEAN CORPUSCULAR VOLUME 95.5 fL (81-99); MONOCYTES # (AUTO) 0.9 (0.2-0.8); MONOCYTES % 7.3 % (4.4-11.3); NEUTROPHILS # (AUTO) 8.8 (2.1-6.9); NEUTROPHILS % 73.1 % (38.7-80.0); PLATELET COUNT 538 x10e3/uL (140-360); RED BLOOD COUNT 4.43 x10e6/uL (4.3-5.7); RED CELL DISTRIBUTION WIDTH 13.4 % (11.7-14.4)
[2020-04-29] MEDS: INSULIN REGULAR, HUMAN 100 UNIT/1 ML 3ML VIAL SQ SCH ×4 (07:29→21:00)
[2020-04-29] MEDS: ASCORBIC ACID 500 MG TAB PO SCH ×2 (10:40→17:38)
[2020-04-29] MEDS: FAMOTIDINE 20 MG TAB PO SCH ×2 (10:40→17:38)
[2020-04-29] MEDS: DEXAMETHASONE SOD PHOS INJ 4 MG/ML VIAL IV SCH (10:40)
[2020-04-29] MEDS: ZINC SULFATE 220 MG CAP PO SCH ×2 (10:40→17:38)
[2020-04-29] MEDS: CHOLECALCIFEROL 400 UNIT TAB PO SCH (10:40)
[2020-04-29] MEDS: AZITHROMYCIN 500MG/NS 250 ML 250 ML IV SCH (10:40)
[2020-04-29] MEDS: CEFTRIAXONE SOD 1 GM/NS 50 ML 50 ML IV SCH (11:31)
[2020-04-29] MEDS: VANCOMYCIN 1GM/NS 250 ML 250 ML IV SCH (17:46)
--- NOTE | 2020-04-29 19:20 | Progress Note ---
DATE: SUBJECTIVE: The patient was transferred to the Intensive Care Unit last night. He remains on Airvo at 60 L with 100% oxygen. His saturation is 95%. His respiratory rate is in the low 30s. PHYSICAL EXAMINATION: VITAL SIGNS: The blood pressure is 110/82, saturation is 95%. The pulse is 98. HEENT: Shows no facial swelling or erythema. LYMPHATIC: Shows no submandibular, cervical, or supraclavicular adenopathy. CARDIAC: Reveals regular rate and rhythm with normal S1, S2. LUNGS: Auscultation of lungs reveals rhonchorous breath sounds bilaterally. There is no wheezing. ABDOMEN: Soft, nontender. There is no rebound or guarding. EXTREMITIES: Shows no leg edema or calf tenderness. There is no cyanosis or clubbing. SKIN: Shows no rashes. NEUROLOGICAL: Shows no focal abnormalities. LABORATORY DATA: BUN to creatinine ratio is normal. The other electrolytes are within normal limits. The ALT is 102 and the AST is 60. Albumin is 2.3. White blood cell count is 12 and hemoglobin is 14.6. The platelet count is 538. IMPRESSION: 1. Acute respiratory failure. 2. Viral pneumonia and COVID-19 infection. 3. Hyperglycemia. 4. Viral hepatitis. PLAN: 1. Place the patient in the prone position. 2. Continue Lovenox. 3. Complete dexamethasone. 4. Continue Airvo. 5. Monitor and control blood sugars. 6. Speech therapy evaluation. Efrain Elmore MD [facility]/MODL /[id number]
--- NOTE | 2020-04-29 23:32 | Progress Note ---
DATE: SUBJECTIVE: Mr. Pelayo remains in intensive care unit, on oxygen. REVIEW OF SYSTEMS: Weakness. PHYSICAL EXAMINATION: VITALS: Stable, afebrile. HEENT: Not icteric. NECK: Supple. CHEST: Crackles bilateral. HEART: S1 and S2. ABDOMEN: Soft. EXTREMITIES: No edema. LABORATORY DATA: Blood cultures negative. White count is 12.0. IMPRESSION: 1. Respiratory failure, COVID-19. 2. Elevated liver enzyme. 3. Continue oxygen as needed. 4. Continue supportive care. He is on Rocephin, zinc, dexamethasone Lovenox, we will follow. Dom Leon MD [facility]/MODL /[id number]
[2020-04-30] VITALS (23 sets, daily range): BP systolic 98–143; BP diastolic 59–89
[2020-04-30] MEDS: ENOXAPARIN SOD INJ 40 MG/0.4 ML SYR SC SCH ×2 (05:31→17:23)
[2020-04-30] MEDS: VANCOMYCIN 1GM/NS 250 ML 250 ML IV SCH ×2 (05:31→17:23)
[2020-04-30 06:30] LABS: BASOPHILS # (AUTO) 0.1 (0.0-0.1); BASOPHILS % 0.6 % (0.0-1.0); EOSINOPHILS # (AUTO) 0.1 (0.0-0.4); EOSINOPHILS % 0.5 % (0.0-6.0); HEMATOCRIT 45.6 % (38.2-49.6); HEMOGLOBIN 15.5 g/dL (14.0-18.0); LYMPHOCYTES # (AUTO) 2.2 (1.0-3.2); LYMPHOCYTES % 17.1 % (18.0-39.1); MEAN CORPUSCULAR HEMOGLOBIN 32.2 pg (28-32); MEAN CORPUSCULAR VOLUME 94.8 fL (81-99); MONOCYTES # (AUTO) 0.9 (0.2-0.8); MONOCYTES % 7.1 % (4.4-11.3); NEUTROPHILS # (AUTO) 9.3 (2.1-6.9); NEUTROPHILS % 73.9 % (38.7-80.0); PLATELET COUNT 590 x10e3/uL (140-360); RED BLOOD COUNT 4.81 x10e6/uL (4.3-5.7); RED CELL DISTRIBUTION WIDTH 13.1 % (11.7-14.4)
[2020-04-30 06:52] LABS: ALANINE AMINOTRANSFERASE 152 IU/L (0-55); ALBUMIN 2.5 g/dL (3.5-5.0); ALBUMIN/GLOBULIN RATIO 0.5 (0.8-2.0); ALKALINE PHOSPHATASE 268 IU/L (40-150); ANION GAP 16.1 mmol/L (8-16); BLOOD UREA NITROGEN 17 mg/dL (7-26); BUN/CREATININE RATIO 24 (6-25); CALCIUM 8.2 mg/dL (8.4-10.2); CARBON DIOXIDE 20 mmol/L (22-29); CHLORIDE 108 mmol/L (98-107); CREATININE, SERUM 0.72 mg/dL (0.72-1.25); EST GLOMERULAR FILTRATION RATE > 60 ML/MIN (60-); GLUCOSE 88 mg/dL (74-118); POTASSIUM 4.1 mmol/L (3.5-5.1); SODIUM 140 mmol/L (136-145)
[2020-04-30 07:04] LABS: ALBUMIN 2.5 g/dL (3.5-5.0); BILIRUBIN,DIRECT 0.3 mg/dL (0.0-0.5)
[2020-04-30] MEDS: INSULIN REGULAR, HUMAN 100 UNIT/1 ML 3ML VIAL SQ SCH ×4 (07:26→21:00)
--- NOTE | 2020-04-30 08:30 | Diagnostic Imaging Report ---
Examination: Single AP view of the chest. COMPARISON: Chest CT 04/27/2020, chest radiograph 04/27/2020 INDICATION: Respiratory failure DISCUSSION: When accounting for differences in technique, no significant interval change in the appearance of bilateral, peripheral predominant consolidations with a predilection for the mid and lower lung zones. No pleural effusion or pneumothorax. Stable cardiomediastinal contour with tortuous thoracic aorta. Mild mediastinal lymphadenopathy described on comparison chest CT is poorly visualized by plain radiography. No acute osseous abnormalities. IMPRESSION: 1. Stable findings of multifocal pneumonia relative to 04/27/2020. Signed by: Dr. Franco Wallace M.D. on 04/30/2020 8:27 AM
[2020-04-30] MEDS: DEXAMETHASONE SOD PHOS INJ 4 MG/ML VIAL IV SCH (09:07)
[2020-04-30] MEDS: FAMOTIDINE 20 MG TAB PO SCH ×2 (09:07→16:51)
[2020-04-30] MEDS: ZINC SULFATE 220 MG CAP PO SCH ×2 (09:07→17:23)
[2020-04-30] MEDS: ASCORBIC ACID 500 MG TAB PO SCH ×2 (09:07→17:23)
[2020-04-30] MEDS: CHOLECALCIFEROL 400 UNIT TAB PO SCH (09:07)
--- NOTE | 2020-04-30 10:45 | NUR ---
called Clementina, pt's daughter, for follow up. No answer. KIMBERLY [facility] Department O: [phone]
[2020-04-30] MEDS: CEFTRIAXONE SOD 1 GM/NS 50 ML 50 ML IV SCH (11:54)
--- NOTE | 2020-04-30 12:09 | Progress Note ---
DATE: SUBJECTIVE: The patient had difficulty lying in the prone position last night. They increased the oxygen on his Airvo to 90%. His L flow is set at 60. PHYSICAL EXAMINATION: VITAL SIGNS: The patient is afebrile. Blood pressure is 114/79. Respiratory rate in the mid 20s. The heart rate is 70. He is on Airvo with a L flow of 60 and a FiO2 of 90%. His saturations in the mid 90s. HEENT: Shows no facial swelling or erythema. LYMPHATIC: Shows no submandibular, cervical, or supraclavicular adenopathy. CARDIAC: Reveals regular rate and rhythm with normal S1, S2. LUNGS: Auscultation of lungs reveals rhonchorous breath sounds bilaterally. There is no wheezing. ABDOMEN: Soft and nontender. There is no rebound or guarding. EXTREMITIES: Shows no leg edema or calf tenderness. There is no cyanosis or clubbing. SKIN: Shows no rashes. NEUROLOGICAL: Shows no focal abnormalities. LABORATORY DATA: White blood cell count is 12.6 and hemoglobin 15.5. The platelet count is 590. The BBV-hc-xrcfukaemb ratio is 17 to 0.72 and his carbon dioxide is 20. Other electrolytes are within normal limits. Albumin is 2.5. RADIOGRAPHIC DATA: Chest x-ray shows multifocal pneumonia. IMPRESSION: 1. Acute respiratory failure. 2. Viral pneumonia and COVID-19 infection. 3. Viral hepatitis. 4. Hyperglycemia. PLAN: 1. Continue current antibiotics. 2. Continue Airvo at 60 L to 90%. 3. Repeat sputum cultures for Gram stain as well as fungus. 4. Monitor and control blood sugars. 5. Case discussed with Infectious Disease, Nursing, Respiratory and patient. Efrain Elmore MD [facility]/NIMOL /[id number]
--- NOTE | 2020-04-30 16:43 | NUR ---
progress note infectiosus disease he patient was transferred to the Intensive Care Unit last night. He remains on Airvo at 60 L with 100% oxygen. His saturation is 95%. His respiratory rate is in the low 30s. he is SOB but ok PHYSICAL EXAMINATION: VITAL SIGNS: The blood pressure is 110/82, saturation is 95%. The pulse is 98. HEENT: Shows no facial swelling or erythema. LYMPHATIC: Shows no submandibular, cervical, or supraclavicular adenopathy. CARDIAC: Reveals regular rate and rhythm with normal S1, S2. LUNGS: Auscultation of lungs reveals rhonchorous breath sounds bilaterally. There is no wheezing. ABDOMEN: Soft, nontender. There is no rebound or guarding. EXTREMITIES: Shows no leg edema or calf tenderness. There is no cyanosis or clubbing. SKIN: Shows no rashes. NEUROLOGICAL: Shows no focal abnormalities. LABORATORY DATA: BUN to creatinine ratio is normal. The other electrolytes are within normal limits. The ALT is 102 and the AST is 60. Albumin is 2.3. White blood cell count is 12 and hemoglobin is 14.6. The platelet count is 538. IMPRESSION: 1. Acute respiratory failure. 2. Viral pneumonia and COVID-19 infection. 3. Hyperglycemia. 4. r/o suerimposed bacterial pneumonia doing ok cont with plan ofcare discussed with medical team
--- OUTSIDE RECORDS SUMMARY | 2020-04-30 19:11 | XMS REPORT | Continuity of Care Document ---
Author Author [facility] t Organization [facility] Address [address] [place] [address] Phone Unavailable Care Team Providers Care Steel Estimator Name Role Phone MD Fidencio NEVAREZ PCP LEOPOLDO GARCIA Attphys Unavailable Lenny STEPHENS Attphys Unavailable LEOPOLDO GARCIA Admphys Unavailable Payers Payer Name Policy Type Policy Number Effective Date Expiration Date [facility] [id number] [facility] Problems Condition Name Condition Details Condition Category Status Onset Date Resolution Date Last Treatment Date Treating Clinician Comments Source Infection due to severe acute respiratory syndrome coronavir us 2 (SARS-CoV-2) Problem Active [facility] Viral pneumonia Problem Active [facility] Allergies, Adverse Reactions, Alerts Allergy Name Allergy Type Status Severity Reaction(s) Onset Date Inacti ve Date Treating Clinician Comments Source PENICLLIN Allergy to substance Active Mild RASH 2017-07-02 00:00:00 [facility] Social History Social Habit Start Date Stop Date Quantity Comments Source Sex Assigned At 1960 00:00:00 1960 00:00:00 Male [facility] Medications This patient has no known medications. Vital Signs Vital Name Observation Time Observation Value Comments Source Weight 2020-04-18 00:25:00 195 [lb_av] [facility] BMI (Body Mass Index) 2020-04-18 00:25:00 28.8 kg/m2 [facility] Procedures This patient has no known procedures. Plan of Care Planned Activity Planned Date Details Comments Source Instructions COVID-19: 12/15/2019 [facility] Encounters Start Date/Time End Date/Time Encounter Type Admission Type Attendi [facility] Care Department Encounter ID Source 2020-04-18 00:33:00 2020-04-18 04:40:00 Departed Emergency Room 1 DAVID STEPHENS [facility] [id number] CH I [facility] Results Test Description Test Time Test Comments Results Result Comments Source CT CHEST W 2020-04-27 17:57:00 [facility] [address] [address] Patient Name: MARY VASQUEZ MR #: [id number] : 1960 Age/Sex: 59/M Req #: [id number] Adm Physician: LEOPOLDO GARCIA MD Ordered by: SARATH CHAU MD Report #: [id number] Location: [facility] Room/Bed: [place] [address] Procedure: [id number] CT/CT CHEST W Exam Date: 04/27/20 Exam Time: 1741 REPORT STATUS: Signed EXAM: CT Chest WITH contrast 04/27/2020 5:41 PM INDICATION: Dyspnea and chest pain clinically concerning for pulmonary embolism. COMPARISON: Same day chest x-rays. TECHNIQUE: Chest was scanned utilizing a multidetector helical scanner from the lung apex through the level of the adrenal glands with administration of IV contrast. Coronal and sagittal reformations were obtained. Routine protocol was performed. IV CONTRAST: 100 mL of Omnipaque 300 COMPLICATIONS: None RADIATION DOSE: Total DLP: 469.82 mGy*cm Estimated effective dose: (DLP x 0.014 x size factor) mSv CTDIvol has been reviewed. It is below the limits set by the Radiation Protocol Committee (RPC). Dose modulation, iterative reconstruction, and/or weight based adjustment of the mA/kV was utilized to reduce the radiation dose to as low as reasonably achievable. FINDINGS: LINES/ TUBES: None. VASCULAR: There are no filling defects within the pulmonary arteries to the segmental level. The main pulmonary artery has normal caliber measuring 2.4 cm. The thoracic aorta has normal enhancement. The ascending and descending aorta have normal caliber measuring 3.2 cm and 2.6 cm, respectively. LUNGS AND AIRWAYS: There is multifocal consolidative and groundglass opacities throughout both lungs. The central airways are patent and the trachea is midline. PLEURA: The pleural spaces are clear. HEART AND MEDIASTINUM: The thyroid gland is normal. There are multiple prominent mediastinal lymph nodes measuring up to 7 mm in short axis, none of which meet criteria for pathologic enlargement. No axillary lymphadenopathy. The heart is normal in size. There is no pericardial effusion. UPPER ABDOMEN: Unremarkable. BONES: There is multilevel degenerative disease of the spine with no suspicious osteolytic or osteoblastic lesions. SOFT TISSUES: Unremarkable. IMPRESSION: 1. No evidence of pulmonary embolism. 2. Consolidative and patchy airspace opacities throughout both lungs which most likely represents multifocal pneumonia, likely viral. Prominent mediastinal lymph nodes are likely reactive. An underlying mass cannot be excluded. Recommend repeat chest CT in 3 months to ensure resolution of these findings. Signed by: Liya Ferrer MD on 04/27/2020 6:06 PM Dictated By: LIYA FERRER MD 05 Transcribed By: MONICA on 04/27/201805 COPY TO: SARATH CHAU MD CHEST SINGLE (PORTABLE) 2020-04-27 11:46:00 [place] [address] Patient Name: MARY VASQUEZ MR #: [id number] : 1960 Age/Sex: 59/M Req #: [id number] Adm Physician: LEOPOLDO GARCIA MD Ordered by: PAWAN KRUGER MD Report #: [id number] Location: [facility] Room/Bed: [place] [address] Procedure: [id number] DX/CHEST SINGLE (PORTABLE) Exam Date: 04/27/20 Exam Time: 1044 REPORT STATUS: Signed EXAMINATION: CHEST SINGLE (PORTABLE) INDICATION: Shortness of breath, cough COMPARISON: Chest radiograph 04/18/2020 FINDINGS: LINES/TUBES:EKG leads overlie the chest. LUNGS:The lungs are moderately inflated. Interval increase in bilateral predominantly peripheral multifocal consolidative opacities. PLEURA:No pleural effusion or pneumothorax. MEDIASTINUM:The cardiomediastinal silhouette appears unchanged in size and shape. BONES/SOFT TISSUES:No acute osseous injury. ABDOMEN:No free air under the diaphragm. IMPRESSION: Interval increase in bilateral multifocal pneumonia. Signed by: Maureen Hauser MD on 04/27/2020 11:47 AM Dictated By: MAUREEN HAUSER MD 1147 Transcribed By: MONICA on 04/27/20 1147 COPY TO: PAWAN KRUGER MD CHEST SINGLE (PORTABLE) 2020-04-18 04:18:00 [place] [address] Patient Name: MARY VASQUEZ MR #: [id number] : 1960 Age/Sex: 59/M Req #: [id number] Adm Physician: Ordered by: DAVID STEPHENS MD Report #: [id number] Location: ER Room/Bed: Procedure: [id number] DX/CHEST SINGLE (PORTABLE) Exam Date: 04/18/20 Exam Time: 0400 REPORT STATUS: Signed Examination: Single AP view of the chest. COMPARISON: None. INDICATION: Cough, fever, body aches IMPRESSION: 1. Lines and Tubes: None 2. Lungs are well inflated. Patchy bilateral interstitial and alveolar opacities, worse in the left midlung likely representing multifocal pneumonia, including viral 3. Cardiomediastinal silhouette is normal. Pulmonary vasculature is normal. 4. No acute bony abnormalities. Signed by: Dr. Oskar Francisco M.D. on 04/18/2020 4:19 AM Dictated By: OSKAR FRANCISCO MD 8 Transcribed By: MONICA on 04/18/20418 COPY TO: DAVID STEPHENS MD
--- OUTSIDE RECORDS SUMMARY | 2020-04-30 19:11 | XMS REPORT | Continuity of Care Document ---
Author Author [facility] t Organization [facility] Address [address] [place] [address] Phone Unavailable Care Team Providers Care Car Wiper Name Role Phone MD Fidencio NEVAREZ PCP LEOPOLDO GARCIA Attphys Unavailable Lenny STEHPENS Attphys Unavailable LEOPOLDO GARCIA Admphys Unavailable Payers Payer Name Policy Type Policy Number Effective Date Expiration Date [facility] [id number] [facility] Problems Condition Name Condition Details Condition Category Status Onset Date Resolution Date Last Treatment Date Treating Clinician Comments Source Infection due to severe acute respiratory syndrome coronavir us 2 (SARS-CoV-2) Problem Active [facility] Viral pneumonia Problem Active [facility] Allergies, Adverse Reactions, Alerts Allergy Name Allergy Type Status Severity Reaction(s) Onset Date Inacti ve Date Treating Clinician Comments Source PENICLLIN Allergy to substance Active Mild RASH 2017-07-02 00:00:00 [facility] Social History Social Habit Start Date Stop Date Quantity Comments Source Sex Assigned At 1960 00:00:00 1960 00:00:00 Male [facility] Medications This patient has no known medications. Vital Signs Vital Name Observation Time Observation Value Comments Source Weight 2020-04-18 00:25:00 195 [lb_av] [facility] BMI (Body Mass Index) 2020-04-18 00:25:00 28.8 kg/m2 [facility] Procedures This patient has no known procedures. Plan of Care Planned Activity Planned Date Details Comments Source Instructions COVID-19: 12/15/2019 [facility] Encounters Start Date/Time End Date/Time Encounter Type Admission Type Attendi [facility] Care Department Encounter ID Source 2020-04-18 00:33:00 2020-04-18 04:40:00 Departed Emergency Room 1 DAVID STEPHENS [facility] [id number] CH I [facility] Results Test Description Test Time Test Comments Results Result Comments Source CT CHEST W 2020-04-27 17:57:00 [facility] [address] [address] Patient Name: MARY VASQUEZ MR #: [id number] : 1960 Age/Sex: 59/M Req #: [id number] Adm Physician: LEOPOLDO GARCIA MD Ordered by: SARATH CHAU MD Report #: [id number] Location: [facility] Room/Bed: [place] [address] Procedure: [id number] CT/CT CHEST W Exam Date: 04/27/20 Exam [...] CHAU MD CHEST SINGLE (PORTABLE) 2020-04-27 11:46:00 [place] [address] Patient Name: MARY VASQUEZ MR #: [id number] : 1960 Age/Sex: 59/M Req #: [id number] Adm Physician: LEOPOLDO GARCIA MD Ordered by: PAWAN KRUGER MD Report #: [id number] Location: [facility] Room/Bed: [place] [address] Procedure: [id number] DX/CHEST SINGLE (PORTABLE) Exam Date: 04/27/20 Exam [...] KRUGER MD CHEST SINGLE (PORTABLE) 2020-04-18 04:18:00 [place] [address] Patient Name: MARY VASQUEZ MR #: [id number] : 1960 Age/Sex: 59/M Req #: [id number] Adm Physician: Ordered by: DAVID STEPHENS MD Report #: [id number] Location: ER Room/Bed: Procedure: [id number] DX/CHEST SINGLE (PORTABLE) Exam Date: 04/18/20 Exam [...] Transcribed By: MONICA on 04/18/20418 COPY TO: DVAID STEPHENS MD
[2020-04-30] MEDS: ZOLPIDEM TARTRATE 5 MG TAB PO PRN (22:18)
[2020-05-01] VITALS (24 sets, daily range): BP systolic 87–130; BP diastolic 50–84
[2020-05-01 05:38] LABS: BASOPHILS # (AUTO) 0.1 (0.0-0.1); BASOPHILS % 0.4 % (0.0-1.0); EOSINOPHILS # (AUTO) 0.1 (0.0-0.4); EOSINOPHILS % 0.5 % (0.0-6.0); HEMATOCRIT 42.3 % (38.2-49.6); HEMOGLOBIN 15.5 g/dL (14.0-18.0); LYMPHOCYTES # (AUTO) 2.3 (1.0-3.2); LYMPHOCYTES % 16.7 % (18.0-39.1); MEAN CORPUSCULAR HEMOGLOBIN 35.6 pg (28-32); MEAN CORPUSCULAR HGB CONC 36.6 g/dL (31-35); MEAN CORPUSCULAR VOLUME 97.2 fL (81-99); MONOCYTES # (AUTO) 1.1 (0.2-0.8); MONOCYTES % 8.2 % (4.4-11.3); NEUTROPHILS % 73.5 % (38.7-80.0); PLATELET COUNT 402 x10e3/uL (140-360); RED BLOOD COUNT 4.35 x10e6/uL (4.3-5.7)
[2020-05-01] MEDS: ENOXAPARIN SOD INJ 40 MG/0.4 ML SYR SC SCH ×2 (05:49→17:43)
[2020-05-01] MEDS: VANCOMYCIN 1GM/NS 250 ML 250 ML IV SCH ×2 (05:49→17:43)
[2020-05-01 06:16] LABS: ALANINE AMINOTRANSFERASE 137 IU/L (0-55); ALBUMIN 2.5 g/dL (3.5-5.0); ALBUMIN/GLOBULIN RATIO 0.6 (0.8-2.0); ALKALINE PHOSPHATASE 247 IU/L (40-150); ANION GAP 14.1 mmol/L (8-16); BLOOD UREA NITROGEN 16 mg/dL (7-26); BUN/CREATININE RATIO 22 (6-25); CALCIUM 8.1 mg/dL (8.4-10.2); CARBON DIOXIDE 20 mmol/L (22-29); CHLORIDE 108 mmol/L (98-107); CREATININE, SERUM 0.73 mg/dL (0.72-1.25); EST GLOMERULAR FILTRATION RATE > 60 ML/MIN (60-); GLUCOSE 81 mg/dL (74-118); POTASSIUM 4.1 mmol/L (3.5-5.1); SODIUM 138 mmol/L (136-145)
[2020-05-01] MEDS: INSULIN REGULAR, HUMAN 100 UNIT/1 ML 3ML VIAL SQ SCH ×4 (07:30→20:17)
[2020-05-01] MEDS: FAMOTIDINE 20 MG TAB PO SCH ×2 (07:51→16:51)
[2020-05-01] MEDS: ZINC SULFATE 220 MG CAP PO SCH ×2 (09:28→17:43)
[2020-05-01] MEDS: CHOLECALCIFEROL 400 UNIT TAB PO SCH (09:28)
[2020-05-01] MEDS: ASCORBIC ACID 500 MG TAB PO SCH ×2 (09:28→17:43)
[2020-05-01] MEDS: DEXAMETHASONE SOD PHOS INJ 4 MG/ML VIAL IV SCH (09:28)
[2020-05-01] MEDS: CEFTRIAXONE SOD 1 GM/NS 50 ML 50 ML IV SCH (12:32)
--- NOTE | 2020-05-01 17:09 | Progress Note ---
DATE: SUBJECTIVE: The patient still has dyspnea on exertion. He remains on Airvo with 90% oxygen and L flow of 60. PHYSICAL EXAMINATION: VITAL SIGNS: Blood pressure is 113/78 and saturation is 98%. The respiratory rate is 20 and the pulse is 82. HEENT: Shows no facial swelling or erythema. LYMPHATIC: Shows no submandibular, cervical, or supraclavicular adenopathy. CARDIAC: Reveals regular rate and rhythm with normal S1 and S2. LUNGS: Auscultation of lungs reveals rhonchorous breath sounds bilaterally. There is no wheezing. ABDOMEN: Soft and nontender. There is no rebound or guarding. EXTREMITIES: Shows no leg edema or calf tenderness. There is no cyanosis or clubbing. SKIN: Shows no rashes. NEUROLOGICAL: Shows no focal abnormalities. LABORATORY DATA: White blood cell count is 13.55 and hemoglobin is 15.5. The platelet count is 402. The BUN to creatinine ratio is 16 to 0.73. The CO2 is 20. Albumin is 2.5. IMPRESSION: 1. Acute respiratory failure. 2. Viral pneumonia and COVID-19 infection. 3. Viral hepatitis. 4. Hyperglycemia. PLAN: 1. Continue Airvo. 2. Complete antibiotics. 3. Continue to monitor and control blood sugars. Efrain Elmore MD [facility]/MODL /[id number]
--- NOTE | 2020-05-01 19:25 | Progress Note ---
DATE: SUBJECTIVE: Mr. Pelayo is doing better, still short of breath. REVIEW OF SYSTEMS: HEENT: Negative. PULMONARY: Negative. CARDIAC: Negative. OBJECTIVE: GENERAL: He remains currently alert. VITAL SIGNS: Stable, afebrile. HEENT: Not icteric. NECK: Supple. CHEST: Crackles bilateral. COR: S1 and S2. ABDOMEN: Soft. IMPRESSION AND PLAN: Coronavirus disease-19 respiratory failure, slowly getting better, discussed with the medical team. Continue to be on oxygen as needed. Continue plan of care as ordered. His white count is 13.55. Sodium 138, potassium 4.1, and creatinine 0.73. He is currently on vancomycin and dexamethasone. His blood culture shows coag-negative staph. Can discontinue vancomycin to finish 10 days of dexamethasone. Continue with Lovenox. Continue with oxygen as needed. MD GR[facility]GOR[facility]/RADHA /[id number]
[2020-05-02] VITALS (24 sets, daily range): BP systolic 92–144; BP diastolic 54–82
[2020-05-02] MEDS: ENOXAPARIN SOD INJ 40 MG/0.4 ML SYR SC SCH ×2 (04:23→17:01)
[2020-05-02 05:00] LABS: BASOPHILS # (AUTO) 0.1 (0.0-0.1); BASOPHILS % 0.6 % (0.0-1.0); EOSINOPHILS # (AUTO) 0.1 (0.0-0.4); HEMATOCRIT 45.7 % (38.2-49.6); HEMOGLOBIN 15.7 g/dL (14.0-18.0); LYMPHOCYTES % 13.9 % (18.0-39.1); MEAN CORPUSCULAR HEMOGLOBIN 31.7 pg (28-32); MEAN CORPUSCULAR HGB CONC 34.4 g/dL (31-35); MEAN CORPUSCULAR VOLUME 92.1 fL (81-99); MONOCYTES # (AUTO) 1.2 (0.2-0.8); MONOCYTES % 8.6 % (4.4-11.3); NEUTROPHILS # (AUTO) 10.8 (2.1-6.9); NEUTROPHILS % 75.2 % (38.7-80.0); PLATELET COUNT 504 x10e3/uL (140-360); RED BLOOD COUNT 4.96 x10e6/uL (4.3-5.7); RED CELL DISTRIBUTION WIDTH 12.8 % (11.7-14.4)
[2020-05-02 05:31] LABS: ALANINE AMINOTRANSFERASE 109 IU/L (0-55); ALBUMIN 2.5 g/dL (3.5-5.0); ALBUMIN/GLOBULIN RATIO 0.6 (0.8-2.0); ALKALINE PHOSPHATASE 227 IU/L (40-150); ANION GAP 15.1 mmol/L (8-16); BLOOD UREA NITROGEN 15 mg/dL (7-26); BUN/CREATININE RATIO 21 (6-25); CALCIUM 8.4 mg/dL (8.4-10.2); CARBON DIOXIDE 21 mmol/L (22-29); CHLORIDE 106 mmol/L (98-107); EST GLOMERULAR FILTRATION RATE > 60 ML/MIN (60-); GLUCOSE 86 mg/dL (74-118); POTASSIUM 4.1 mmol/L (3.5-5.1); SODIUM 138 mmol/L (136-145)
[2020-05-02] MEDS: INSULIN REGULAR, HUMAN 100 UNIT/1 ML 3ML VIAL SQ SCH ×4 (07:30→19:54)
[2020-05-02] MEDS: FAMOTIDINE 20 MG TAB PO SCH ×2 (07:31→17:01)
[2020-05-02] MEDS: CHOLECALCIFEROL 400 UNIT TAB PO SCH (08:36)
[2020-05-02] MEDS: ASCORBIC ACID 500 MG TAB PO SCH ×2 (08:36→17:01)
[2020-05-02] MEDS: ZINC SULFATE 220 MG CAP PO SCH ×2 (08:36→17:01)
[2020-05-02] MEDS: DEXAMETHASONE SOD PHOS INJ 4 MG/ML VIAL IV SCH (08:36)
--- NOTE | 2020-05-02 12:07 | Progress Note ---
DATE: Pulmonary Critical Care Progress Note. SUBJECTIVE: The patient is having less dyspnea with exertion. His Airvo was turned down to 55 L with 75% oxygen. PHYSICAL EXAMINATION: VITAL SIGNS: Blood pressure is 108/80, saturation is 95% and the pulse is 86. HEENT: Shows no facial swelling or erythema. LYMPHATIC: Shows no submandibular, cervical, or supraclavicular adenopathy. CARDIAC: Reveals regular rate and rhythm with normal S1, S2. LUNGS: Auscultation of lungs reveals rhonchorous breath sounds bilaterally. There is no wheezing. ABDOMEN: Soft and nontender. There is no rebound or guarding. EXTREMITIES: Shows no leg edema or calf tenderness. There is no cyanosis or clubbing. SKIN: Shows no rashes. NEUROLOGICAL: Shows no focal abnormalities. LABORATORY DATA: White blood cell count is 14.4, hemoglobin is 15.7 and the platelet count is 504. The BUN to creatinine ratio is 15 to 0.7, and carbon dioxide is 21. Albumin is 2.5. IMPRESSION: 1. Acute respiratory failure. 2. Viral pneumonia and COVID-19 infection. 3. Viral hepatitis. 4. Hyperglycemia. PLAN: 1. Continue Airvo and wean as tolerated. 2. Complete antibiotics. 3. Continue to monitor control blood sugars. 4. Speech therapy evaluation. Efrain Elmore MD [facility]/MODL /[id number]
--- NOTE | 2020-05-02 13:49 | NUR ---
INFECTIOUS DISEASE PROGRESS NOTE DR CHAU REVIEW OF SYSTEMS: HEENT: Negative. PULMONARY: Negative. CARDIAC: Negative. OBJECTIVE: GENERAL: He remains currently alert. VITAL SIGNS: Stable, afebrile. HEENT: Not icteric. NECK: Supple. CHEST: Crackles bilateral. COR: S1 and S2. ABDOMEN: Soft. LABS: REVIEWED RADIOLOGY: REVIEWED IMPRESSION AND PLAN: Coronavirus disease-19 respiratory failure viral hepatitis viral pna -slowly getting better, discussed with the medical team. Continue to be on oxygen as needed. Continue plan of care as ordered. PT SEEN AND EVALUATED BY DR CHAU
--- NOTE | 2020-05-02 19:00 | NUR ---
Bedside report received from Kim Marshall RN. Pt received resting in bed on left side with no signs of distress noted and no pain reported. Pt on Airvo 50L/55%, RR 21, SPO2% 96%. Bed in lowest and locked position, call light in reach of the pt. HR 76, BP 115/82. Pt voiding to urinal as needed.
[2020-05-02] MEDS: ZOLPIDEM TARTRATE 5 MG TAB PO PRN (22:24)
[2020-05-03] VITALS (23 sets, daily range): BP systolic 93–134; BP diastolic 51–92
[2020-05-03] MEDS: ENOXAPARIN SOD INJ 40 MG/0.4 ML SYR SC SCH ×2 (05:56→16:32)
[2020-05-03] MEDS: INSULIN REGULAR, HUMAN 100 UNIT/1 ML 3ML VIAL SQ SCH ×4 (07:30→21:00)
[2020-05-03] MEDS: FAMOTIDINE 20 MG TAB PO SCH ×3 (07:38→16:33)
--- NOTE | 2020-05-03 08:02 | Diagnostic Imaging Report ---
EXAMINATION: CHEST SINGLE (PORTABLE) INDICATION: Bilateral pneumonia. COMPARISON: Chest x-ray 04/30/2020 FINDINGS: TUBES and LINES: None. LUNGS: Extensive airspace haziness. PLEURA: No pleural effusion or pneumothorax. HEART AND MEDIASTINUM: The cardiomediastinal silhouette is unremarkable. Unchanged rightward tracheal deviation. BONES AND SOFT TISSUES: No acute osseous lesion. Soft tissues are unremarkable. UPPER ABDOMEN: No free air under the diaphragm. IMPRESSION: Extensive pneumonia. Signed by: Jey Barnes DO on 05/03/2020 7:58 AM
[2020-05-03 08:37] LABS: BASOPHILS # (AUTO) 0.1 (0.0-0.1); BASOPHILS % 0.5 % (0.0-1.0); EOSINOPHILS # (AUTO) 0.2 (0.0-0.4); EOSINOPHILS % 1.3 % (0.0-6.0); HEMATOCRIT 47.1 % (38.2-49.6); HEMOGLOBIN 16.2 g/dL (14.0-18.0); LYMPHOCYTES # (AUTO) 2.6 (1.0-3.2); LYMPHOCYTES % 21.8 % (18.0-39.1); MEAN CORPUSCULAR HEMOGLOBIN 31.7 pg (28-32); MEAN CORPUSCULAR HGB CONC 34.4 g/dL (31-35); MEAN CORPUSCULAR VOLUME 92.2 fL (81-99); MONOCYTES # (AUTO) 0.8 (0.2-0.8); MONOCYTES % 6.9 % (4.4-11.3); NEUTROPHILS # (AUTO) 8.3 (2.1-6.9); NEUTROPHILS % 68.8 % (38.7-80.0); PLATELET COUNT 512 x10e3/uL (140-360); RED BLOOD COUNT 5.11 x10e6/uL (4.3-5.7); RED CELL DISTRIBUTION WIDTH 12.7 % (11.7-14.4)
[2020-05-03 09:01] LABS: ALANINE AMINOTRANSFERASE 91 IU/L (0-55); ALBUMIN 2.5 g/dL (3.5-5.0); ALBUMIN/GLOBULIN RATIO 0.5 (0.8-2.0); ALKALINE PHOSPHATASE 228 IU/L (40-150); ANION GAP 12.7 mmol/L (8-16); BLOOD UREA NITROGEN 15 mg/dL (7-26); BUN/CREATININE RATIO 21 (6-25); CALCIUM 8.5 mg/dL (8.4-10.2); CARBON DIOXIDE 23 mmol/L (22-29); CHLORIDE 104 mmol/L (98-107); CREATININE, SERUM 0.72 mg/dL (0.72-1.25); EST GLOMERULAR FILTRATION RATE > 60 ML/MIN (60-); GLUCOSE 119 mg/dL (74-118); POTASSIUM 3.7 mmol/L (3.5-5.1); SODIUM 136 mmol/L (136-145)
[2020-05-03] MEDS: ASCORBIC ACID 500 MG TAB PO SCH ×2 (09:03→16:32)
[2020-05-03] MEDS: ZINC SULFATE 220 MG CAP PO SCH ×2 (09:03→16:32)
[2020-05-03] MEDS: CHOLECALCIFEROL 400 UNIT TAB PO SCH (09:03)
[2020-05-03] MEDS: DEXAMETHASONE SOD PHOS INJ 4 MG/ML VIAL IV SCH (09:03)
--- NOTE | 2020-05-03 11:47 | Progress Note ---
DATE: SUBJECTIVE: The patient is still on Airvo at 50 L with 50% oxygen. He still has some dyspnea with exertion. PHYSICAL EXAMINATION: VITAL SIGNS: The blood pressure is 119/80, saturation is 93%, and respiratory rate is in the mid 20s. HEENT: No facial swelling or erythema. LYMPHATIC: No submandibular, cervical, or supraclavicular adenopathy. CARDIAC: Regular rate and rhythm with normal S1, S2. LUNGS: Auscultation of lungs reveals crackles at the bases. There is no wheezing. ABDOMEN: Soft, nontender. There is no rebound or guarding. EXTREMITIES: 1 to 2+ edema. LABORATORY DATA: White blood cell count is 12 and hemoglobin is 16.2. The platelet count is 512. The BUN to creatinine ratio is normal. The other electrolytes are within normal limits. Albumin is 2.5. RADIOGRAPHIC DATA: Chest x-ray shows extensive pneumonia. IMPRESSION: 1. Acute respiratory failure. 2. Viral pneumonia and coronavirus disease-19 infection. 3. Viral hepatitis. 4. Hyperglycemia. PLAN: 1. Continue to wean Airvo. 2. Physical therapy consultation. 3. Continue to monitor and control blood sugars. 4. Complete antibiotics. Efrain Elmore MD [facility]/MODL /[id number]
--- NOTE | 2020-05-03 13:19 | NUR ---
Nutrition Screen Note RD Recommendation for Physician: - Continue current diet Plan of Care: RD following, monitoring for tolerance and adequacy Nutrition reason for involvement: LOS Primary Diagnose(s): hypoxia, PNA, COVID-19 PMH: no PMH on admit Ht: 69 in Wt: 195 lb BMI: 28.8 kg/m2 IBW: [address] Assessment: 05/03: 59 YOM admitted for hypoxia and pneumonia due to COVID-19. Pt evaluated today for LOS. No indicted poor intake or wt loss at admit. Pt with good po intake currently, ~100% of meals. No GI distress, LBM 05/01. Skin intact. Labs and meds reviewed. Chart reviewed. Will continue to monitor. Current Diet: Cardiac Malnutrition Evaluation (05/03/20) The patient does not meet criteria for a specified degree of malnutrition at this time. Will re-evaluate at follow-up as appropriate. Pt currently on isolation protocol for COVID-19. Diet Education Needs Assessment: Diet education not indicated Diet tolerance: tolerating po Nutrition Care Level: low Signed: Nora Lujan RD, LD, [facility]
--- NOTE | 2020-05-03 14:53 | NUR ---
ST NOTE: Pt sleeping, did not wake. Pt eating 100% of trays, RN's reporting tolerating diet. Will see pt 05/04/20 for follow up on PO intake. Handoff to NITA Olmos
--- NOTE | 2020-05-03 16:13 | NUR ---
NFECTIOUS DISEASE PROGRESS NOTE DR CHAU REVIEW OF SYSTEMS: HEENT: Negative. PULMONARY: Negative. CARDIAC: Negative. OBJECTIVE: GENERAL: He remains currently alert. VITAL SIGNS: Stable, afebrile. HEENT: Not icteric. NECK: Supple. CHEST: Crackles bilateral. COR: S1 and S2. ABDOMEN: Soft. LABS: REVIEWED RADIOLOGY: REVIEWED IMPRESSION AND PLAN: Coronavirus disease-19 respiratory failure viral hepatitis viral pna -slowly getting better, discussed with the medical team. Continue to be on oxygen as needed. Continue plan of care as ordered. seems better
--- NOTE | 2020-05-03 16:22 | NUR ---
Skilled physical therapy services not indicated at this time since patient is mod I in functional mobility. Thank you Addendum: 05/03/20 at 1624 by Mack rasheed PT Amended: Links added.
[2020-05-03] MEDS: ZOLPIDEM TARTRATE 5 MG TAB PO PRN (21:43)
[2020-05-04] VITALS (23 sets, daily range): BP systolic 92–126; BP diastolic 56–89
[2020-05-04 04:49] LABS: BASOPHILS # (AUTO) 0.1 (0.0-0.1); BASOPHILS % 0.7 % (0.0-1.0); EOSINOPHILS # (AUTO) 0.1 (0.0-0.4); EOSINOPHILS % 0.8 % (0.0-6.0); HEMATOCRIT 46.9 % (38.2-49.6); HEMOGLOBIN 16.1 g/dL (14.0-18.0); LYMPHOCYTES # (AUTO) 2.1 (1.0-3.2); LYMPHOCYTES % 22.4 % (18.0-39.1); MEAN CORPUSCULAR HEMOGLOBIN 31.9 pg (28-32); MEAN CORPUSCULAR HGB CONC 34.3 g/dL (31-35); MEAN CORPUSCULAR VOLUME 92.9 fL (81-99); MONOCYTES # (AUTO) 0.8 (0.2-0.8); MONOCYTES % 8.1 % (4.4-11.3); NEUTROPHILS # (AUTO) 6.4 (2.1-6.9); NEUTROPHILS % 67.4 % (38.7-80.0); PLATELET COUNT 486 x10e3/uL (140-360); RED BLOOD COUNT 5.05 x10e6/uL (4.3-5.7); RED CELL DISTRIBUTION WIDTH 12.5 % (11.7-14.4)
[2020-05-04 05:07] LABS: ALANINE AMINOTRANSFERASE 104 IU/L (0-55); ALBUMIN 2.6 g/dL (3.5-5.0); ALBUMIN/GLOBULIN RATIO 0.6 (0.8-2.0); ALKALINE PHOSPHATASE 220 IU/L (40-150); ANION GAP 12.1 mmol/L (8-16); BLOOD UREA NITROGEN 15 mg/dL (7-26); BUN/CREATININE RATIO 21 (6-25); CALCIUM 8.6 mg/dL (8.4-10.2); CARBON DIOXIDE 23 mmol/L (22-29); CHLORIDE 107 mmol/L (98-107); CREATININE, SERUM 0.73 mg/dL (0.72-1.25); EST GLOMERULAR FILTRATION RATE > 60 ML/MIN (60-); GLUCOSE 96 mg/dL (74-118); POTASSIUM 4.1 mmol/L (3.5-5.1); SODIUM 138 mmol/L (136-145)
[2020-05-04] MEDS: ENOXAPARIN SOD INJ 40 MG/0.4 ML SYR SC SCH ×2 (06:15→17:30)
[2020-05-04] MEDS: INSULIN REGULAR, HUMAN 100 UNIT/1 ML 3ML VIAL SQ SCH ×4 (07:16→21:00)
[2020-05-04] MEDS: DEXAMETHASONE SOD PHOS INJ 4 MG/ML VIAL IV SCH (09:00)
[2020-05-04] MEDS: ASCORBIC ACID 500 MG TAB PO SCH ×2 (09:01→17:30)
[2020-05-04] MEDS: CHOLECALCIFEROL 400 UNIT TAB PO SCH (09:01)
[2020-05-04] MEDS: ZINC SULFATE 220 MG CAP PO SCH ×2 (09:01→17:30)
--- NOTE | 2020-05-04 14:23 | Progress Note ---
DATE: SUBJECTIVE: The patient's oxygen is decreased to 45% FiO2, but he remains on 45 L of flow with the Airvo. He becomes short of breath when he ambulates. PHYSICAL EXAMINATION: VITAL SIGNS: The patient is afebrile. Blood pressure is 112/76 and saturation is 92%. Pulse is 90. HEENT: No facial swelling or erythema. The oropharynx is normal. LYMPHATIC: No submandibular, cervical, or supraclavicular adenopathy. CARDIAC: Regular rate and rhythm. Normal S1, S2. LUNGS: Auscultation of lungs reveals rhonchorous breath sounds bilaterally. There is no wheezing. ABDOMEN: Soft, nontender. There is no rebound or guarding. EXTREMITIES: No leg edema or calf tenderness. There is no cyanosis or clubbing. SKIN: No rashes. NEUROLOGICAL: No focal abnormalities. LABORATORY DATA: White blood cell count is 9.5 and hemoglobin is 16.1. The platelet count is 486. The BUN to creatinine ratio is normal. The other electrolytes are within normal limits. Albumin is 2.6. RADIOGRAPHIC DATA: Chest x-ray shows bilateral infiltrates. IMPRESSION: 1. Acute respiratory failure. 2. Viral pneumonia and coronavirus disease-19 infection. 3. Viral hepatitis. 4. Hyperglycemia. PLAN: 1. Continue to wean Airvo as tolerated. 2. Continue physical therapy. 3. Monitor and control blood sugars. Efrain Elmore MD [facility]/MODL /[id number]
[2020-05-04] MEDS: FAMOTIDINE 20 MG TAB PO SCH (16:39)
--- NOTE | 2020-05-04 17:19 | Progress Note ---
DATE: SUBJECTIVE: Mr. Pelayo, this is day #7 of hospitalization. He remains in intensive care unit. The patient is on oxygen 45%, 45 L of flow from Revo. OBJECTIVE: HEENT: He is not icteric. NECK: Supple. CHEST: Crackles bilateral. HEART: S1-S2. ABDOMEN: Soft. Bowel sounds present. EXTREMITIES: No edema. SKIN: No rashes. LABORATORY DATA: White cells 9.5, hemoglobin 16. Discussed with the medical team. IMPRESSION AND PLAN: Respiratory failure, coronavirus disease-19, elevated liver enzyme, diabetes mellitus, and elevated glucose. Continue supportive care. The patient is on vitamin C, dexamethasone to finish 10 days. On Lovenox as ordered. Off antibiotic. On oxygen, to continue as ordered. MD GR[facility]GOR[facility]/MODL /[id number]
[2020-05-05] VITALS (20 sets, daily range): BP systolic 104–130; BP diastolic 63–90
[2020-05-05] MEDS: ENOXAPARIN SOD INJ 40 MG/0.4 ML SYR SC SCH ×2 (05:01→16:21)
[2020-05-05 05:05] LABS: BASOPHILS # (AUTO) 0.1 (0.0-0.1); BASOPHILS % 0.7 % (0.0-1.0); EOSINOPHILS # (AUTO) 0.1 (0.0-0.4); EOSINOPHILS % 1.2 % (0.0-6.0); HEMATOCRIT 45.8 % (38.2-49.6); HEMOGLOBIN 15.7 g/dL (14.0-18.0); LYMPHOCYTES # (AUTO) 2.1 (1.0-3.2); LYMPHOCYTES % 24.7 % (18.0-39.1); MEAN CORPUSCULAR HGB CONC 34.3 g/dL (31-35); MEAN CORPUSCULAR VOLUME 93.5 fL (81-99); MONOCYTES # (AUTO) 0.7 (0.2-0.8); MONOCYTES % 7.9 % (4.4-11.3); NEUTROPHILS # (AUTO) 5.5 (2.1-6.9); NEUTROPHILS % 64.9 % (38.7-80.0); PLATELET COUNT 435 x10e3/uL (140-360); RED CELL DISTRIBUTION WIDTH 12.5 % (11.7-14.4)
[2020-05-05 05:20] LABS: PHOSPHORUS 3.8 MG/DL (2.3-4.7)
[2020-05-05 05:36] LABS: ALANINE AMINOTRANSFERASE 85 IU/L (0-55); ALBUMIN 2.5 g/dL (3.5-5.0); ALBUMIN/GLOBULIN RATIO 0.6 (0.8-2.0); ALKALINE PHOSPHATASE 191 IU/L (40-150); ANION GAP 12.9 mmol/L (8-16); BLOOD UREA NITROGEN 17 mg/dL (7-26); BUN/CREATININE RATIO 23 (6-25); CALCIUM 7.6 mg/dL (8.4-10.2); CARBON DIOXIDE 23 mmol/L (22-29); CHLORIDE 106 mmol/L (98-107); CREATININE, SERUM 0.73 mg/dL (0.72-1.25); EST GLOMERULAR FILTRATION RATE > 60 ML/MIN (60-); GLUCOSE 90 mg/dL (74-118); POTASSIUM 4.9 mmol/L (3.5-5.1); SODIUM 137 mmol/L (136-145)
--- NOTE | 2020-05-05 05:40 | Diagnostic Imaging Report ---
EXAMINATION: CHEST SINGLE (PORTABLE) INDICATION: ^viral pneumonia ^[id number] ^0300 COMPARISON: Radiograph from 05/03/2020 FINDINGS: TUBES and LINES: None. LUNGS: Multifocal bilateral patchy airspace opacities in a peripheral distribution, not significantly changed from prior study. PLEURA: No pleural effusion or pneumothorax. HEART AND MEDIASTINUM: The cardiomediastinal silhouette is unremarkable. BONES AND SOFT TISSUES: No acute osseous lesion. Soft tissues are unremarkable. UPPER ABDOMEN: No free air under the diaphragm. IMPRESSION: Unchanged multifocal pneumonia/viral pneumonitis. Signed by: Cedric Aguirre MD on 05/05/2020 5:36 AM
[2020-05-05 05:41] LABS: THYROID STIMULATING HORMONE 0.881 uIU/mL (0.350-4.940)
[2020-05-05] MEDS: INSULIN REGULAR, HUMAN 100 UNIT/1 ML 3ML VIAL SQ SCH ×4 (07:30→21:12)
[2020-05-05] MEDS: FAMOTIDINE 20 MG TAB PO SCH ×2 (08:44→16:21)
[2020-05-05] MEDS: DEXAMETHASONE SOD PHOS INJ 4 MG/ML VIAL IV SCH (08:44)
[2020-05-05] MEDS: ASCORBIC ACID 500 MG TAB PO SCH ×2 (08:46→16:21)
[2020-05-05] MEDS: CHOLECALCIFEROL 400 UNIT TAB PO SCH (08:46)
[2020-05-05] MEDS: ZINC SULFATE 220 MG CAP PO SCH ×2 (08:47→16:21)
--- NOTE | 2020-05-05 15:48 | Progress Note ---
DATE: SUBJECTIVE: Mr. Pelayo remains in intensive care unit. This is day #8. He is still short of breath. PHYSICAL EXAMINATION: GENERAL: He is currently alert. VITAL SIGNS: Stable, afebrile. HEENT: He is not icteric. NECK: Supple. CHEST: He remains on high-flow. The patient, who is on dexamethasone, to finish 10 days. IMPRESSION: Respiratory failure, COVID-19, very slow progress, off antibiotic. Continue anticoagulation. Continue supportive care. Discussed with medical team. MD GRZEGORZ [facility]/MODL /[id number]
--- NOTE | 2020-05-05 19:55 | Progress Note ---
DATE: SUBJECTIVE: The patient is afebrile. He is less dyspneic. His airflow has been decreased to 40 L with 45%. PHYSICAL EXAMINATION: VITAL SIGNS: The patient is afebrile, saturation is now 96%, his blood pressure is 130/90. HEENT: Shows no facial swelling or erythema. CARDIAC: Reveals regular rate and rhythm with normal S1, S2. LUNGS: Auscultation of lungs reveals rhonchorous breath sounds bilaterally. There is no wheezing. ABDOMEN: Soft and nontender. There is no rebound or guarding. EXTREMITIES: Shows no leg edema or calf tenderness. There is no cyanosis or clubbing. SKIN: Shows no rashes. NEUROLOGICAL: Shows no focal abnormalities. LABORATORY DATA: BUN and creatinine all within normal limits. Electrolytes within normal limits. CBC is within normal limits. IMPRESSION: 1. Acute respiratory failure. 2. Viral pneumonia and COVID-19 infection. 3. Hyperglycemia. 4. Viral hepatitis. PLAN: 1. Continue to wean Airvo. 2. Physical therapy. 3. Continue current antibiotics. 4. Monitor and control blood sugars. Efrain Elmore MD [facility]/MODL /[id number]
[2020-05-05] MEDS: ZOLPIDEM TARTRATE 5 MG TAB PO PRN (21:10)
[2020-05-06] VITALS (19 sets, daily range): BP systolic 96–128; BP diastolic 48–106
[2020-05-06 04:48] LABS: BASOPHILS # (AUTO) 0.1 (0.0-0.1); BASOPHILS % 0.7 % (0.0-1.0); EOSINOPHILS # (AUTO) 0.1 (0.0-0.4); EOSINOPHILS % 1.4 % (0.0-6.0); HEMATOCRIT 46.6 % (38.2-49.6); HEMOGLOBIN 16.2 g/dL (14.0-18.0); LYMPHOCYTES # (AUTO) 2.7 (1.0-3.2); LYMPHOCYTES % 29.1 % (18.0-39.1); MEAN CORPUSCULAR HEMOGLOBIN 31.6 pg (28-32); MEAN CORPUSCULAR HGB CONC 34.8 g/dL (31-35); MONOCYTES # (AUTO) 0.8 (0.2-0.8); MONOCYTES % 8.7 % (4.4-11.3); NEUTROPHILS # (AUTO) 5.5 (2.1-6.9); NEUTROPHILS % 59.4 % (38.7-80.0); PLATELET COUNT 445 x10e3/uL (140-360); RED BLOOD COUNT 5.12 x10e6/uL (4.3-5.7); RED CELL DISTRIBUTION WIDTH 12.7 % (11.7-14.4)
[2020-05-06 05:12] LABS: ALANINE AMINOTRANSFERASE 90 IU/L (0-55); ALBUMIN 2.6 g/dL (3.5-5.0); ALBUMIN/GLOBULIN RATIO 0.6 (0.8-2.0); ALKALINE PHOSPHATASE 174 IU/L (40-150); ANION GAP 13.1 mmol/L (8-16); BLOOD UREA NITROGEN 19 mg/dL (7-26); BUN/CREATININE RATIO 26 (6-25); CALCIUM 8.3 mg/dL (8.4-10.2); CARBON DIOXIDE 22 mmol/L (22-29); CHLORIDE 107 mmol/L (98-107); CREATININE, SERUM 0.72 mg/dL (0.72-1.25); EST GLOMERULAR FILTRATION RATE > 60 ML/MIN (60-); GLUCOSE 90 mg/dL (74-118); POTASSIUM 4.1 mmol/L (3.5-5.1); SODIUM 138 mmol/L (136-145)
[2020-05-06] MEDS: ENOXAPARIN SOD INJ 40 MG/0.4 ML SYR SC SCH ×2 (05:56→17:24)
[2020-05-06] MEDS: INSULIN REGULAR, HUMAN 100 UNIT/1 ML 3ML VIAL SQ SCH ×4 (07:23→21:00)
[2020-05-06] MEDS: FAMOTIDINE 20 MG TAB PO SCH ×2 (07:55→16:45)
[2020-05-06] MEDS: ZINC SULFATE 220 MG CAP PO SCH ×2 (08:16→17:24)
[2020-05-06] MEDS: DEXAMETHASONE SOD PHOS INJ 4 MG/ML VIAL IV SCH (08:16)
[2020-05-06] MEDS: ASCORBIC ACID 500 MG TAB PO SCH ×2 (08:16→17:24)
[2020-05-06] MEDS: CHOLECALCIFEROL 400 UNIT TAB PO SCH (08:16)
--- NOTE | 2020-05-06 10:08 | Progress Note ---
DATE: SUBJECTIVE: The patient remains on Airvo. The liter flow has been decreased to 35 L. The FiO2 is set at 45%. PHYSICAL EXAMINATION: VITAL SIGNS: Stable. HEENT: No facial swelling or erythema. LYMPHATIC: No submandibular, cervical, or supraclavicular adenopathy. CARDIAC: Regular rate and rhythm with normal S1, S2. LUNGS: Auscultation of lungs reveals rhonchorous breath sounds bilaterally. There is no wheezing. ABDOMEN: Soft, nontender. There is no rebound or guarding. EXTREMITIES: No leg edema or calf tenderness. There is no cyanosis or clubbing. SKIN: No rashes. NEUROLOGICAL: No focal abnormalities. LABORATORY DATA: White blood cell count is 9.3, hemoglobin 16.2. The platelet count is 445. The BUN to creatinine ratio is normal. The other electrolytes are within normal limits. IMPRESSION: 1. Acute respiratory failure. 2. Viral pneumonia and coronavirus disease-19 infection. 3. Hyperglycemia. 4. Viral hepatitis. PLAN: 1. Continue to wean Airvo. 2. Continue current antibiotics. 3. Monitor and control blood sugars. 4. Possible transfer out of the intensive care unit. Efrain Elmore MD [facility]/RADHA /[id number]
--- NOTE | 2020-05-06 15:37 | NUR ---
e patient remains on Airvo. The liter flow has been decreased to 35 L. The FiO2 is set at 45%. PHYSICAL EXAMINATION: VITAL SIGNS: Stable. HEENT: No facial swelling or erythema. LYMPHATIC: No submandibular, cervical, or supraclavicular adenopathy. CARDIAC: Regular rate and rhythm with normal S1, S2. LUNGS: Auscultation of lungs reveals rhonchorous breath sounds bilaterally. There is no wheezing. ABDOMEN: Soft, nontender. There is no rebound or guarding. EXTREMITIES: No leg edema or calf tenderness. There is no cyanosis or clubbing. SKIN: No rashes. NEUROLOGICAL: No focal abnormalities. LABORATORY DATA: White blood cell count is 9.3, hemoglobin 16.2. The platelet count is 445. The BUN to creatinine ratio is normal. The other electrolytes are within normal limits. IMPRESSION: 1. Acute respiratory failure. 2. Viral pneumonia and coronavirus disease-19 infection. 3. Hyperglycemia. 4. Viral hepatitis.
--- NOTE | 2020-05-06 17:45 | Progress Note ---
DATE: SUBJECTIVE: Mr. Pelayo remains in intensive care unit on the Revo. PHYSICAL EXAMINATION: GENERAL: He is currently alert, oriented. VITAL SIGNS: Stable. HEENT: Not icteric. NECK: Supple. CHEST: Crackles. HEART: S1, S2. No murmurs. ABDOMEN: Soft. IMPRESSION: Coronavirus disease-19, respiratory failure. Continue as ordered. Discussed with medical team to wean oxygen as needed. Continue anticoagulation. MD GRZEGORZ [facility]/MODL /[id number]
[2020-05-06] MEDS: ZOLPIDEM TARTRATE 5 MG TAB PO PRN (20:50)
[2020-05-07] VITALS (12 sets, daily range): BP systolic 102–122; BP diastolic 43–95
--- NOTE | 2020-05-07 04:47 | Progress Note ---
DATE: 05/06/2020 CONSULTING PHYSICIANS: 1. Dr. Dom Leon with Infectious Disease. 2. Dr. Efrain Elmore with Pulmonology/Critical Care Medicine. SUBJECTIVE: The patient is supine on his side, asleep, is easily arousable. Per nursing, the patient has been eating well and is able to work with physical therapy. OBJECTIVE: VITAL SIGNS: Temperature 98.7, heart rate 76, blood pressure 111/77, respirations 18, and oxygen saturation 97%. GENERAL: No acute distress. LUNGS: Currently nonlabored. Rhonchorous breath sounds. AIRVO at 35 L/minute, FiO2 49% with oxygen saturation 97% during encounter. HEENT: EOMI. NECK: Supple. CARDIOVASCULAR: Normal sinus rhythm. ABDOMEN: Soft, nontender. EXTREMITIES: With no edema. No signs or symptoms of DVT. NEUROLOGICAL: GCS 15. Nonfocal. LABORATORY DATA: WBCs 9.34, hemoglobin 16.2, hematocrit 46.6, platelets 445. Sodium 138, potassium 4.1, chloride 107, CO2 22, BUN 19, creatinine 0.72, estimated GFR greater than 60. Glucose 90. Fingerstick blood glucose levels 91, 121, 119. Calcium 8.3, total bilirubin 0.6, AST 28, ALT 90, alkaline phosphatase 174, total protein 6.7, albumin 2.6. IMAGING: No new chest x-ray results. ASSESSMENT/PLAN: 1. Coronavirus disease-2019 pneumonia with acute respiratory distress syndrome. Continue Decadron, zinc sulfate/vitamin-C/vitamin D, Lovenox, albuterol HFA. He is tolerating the weaning of FiO2, liters/minute. Infectious Disease, Pulmonary/Critical Care Medicine following. 2. Transaminitis. ALT 90, alkaline phosphatase 174. Monitor. 3. Asymptomatic bradycardia with heart rate 52 while asleep. 4. Disposition, transfer order was provided to transfer to the floor. Lab holiday tomorrow. 5. Prophylaxis. Lovenox and Pepcid. Billing code 55496. Time spent 35 minutes. Dictated by Vicente Bui NP Lew Ambrocio MD [facility]/MODL /[id number]
[2020-05-07] MEDS: ENOXAPARIN SOD INJ 40 MG/0.4 ML SYR SC SCH ×2 (05:00→17:18)
--- NOTE | 2020-05-07 06:25 | NUR ---
Patient transferred to room 297, without any events, report given to receiving nurse, Patient alert and oriented, all personal belongings retrieved and transferred with patient.
--- NOTE | 2020-05-07 07:00 | NUR ---
BEDSIDE SHIFT REPORT RECEIVED FROM COMMERCIAL HOUSEKEEPER RN. EDUCATED PT ABOUT FALL PRECAUTIONS. PT VERBALIZED UNDERSTANDING. BED IS LOW AND LOCKED. SIDE RAILS X2. BED ALARM IS ON. CALL LIGHT WITH IN EASY REACH. ALL SAFETY MEASURES IN PLACE. PT DENIES NEEDS AT THIS TIME.
[2020-05-07] MEDS: INSULIN REGULAR, HUMAN 100 UNIT/1 ML 3ML VIAL SQ SCH ×4 (07:30→20:15)
[2020-05-07] MEDS: ASCORBIC ACID 500 MG TAB PO SCH ×2 (08:28→17:18)
[2020-05-07] MEDS: FAMOTIDINE 20 MG TAB PO SCH ×2 (08:28→17:18)
[2020-05-07] MEDS: ZINC SULFATE 220 MG CAP PO SCH ×2 (08:29→17:18)
[2020-05-07] MEDS: CHOLECALCIFEROL 400 UNIT TAB PO SCH (08:29)
--- NOTE | 2020-05-07 19:10 | NUR ---
BEDSIDE SHIFT REPORT GIVEN TO THE FELLMONGERY WORKER RN. PT DENIED FURTHER NEEDS.
--- NOTE | 2020-05-07 19:45 | NUR ---
recieved report patient AOX4, oxygen support in place, pending transfer to [facility] ROOM 178 FOR CONTINUED CARE, ATTEMPTED TO CALL REPORT, RN CURRENTLY MOVING PATIENT WILL CALL ME BACK TO RECEIVED REPORT
--- NOTE | 2020-05-07 20:12 | NUR ---
PATIENT MADE AWARE THAT HE IS COVID (+) AND WILL BE PLACED ON COVID OBS UNIT, TRANSFERRED TO COVID UNIT BY RESP AND FIELD SERVICER VIA WHEELCHAIR, TOLERATED TRANSFER W/O DIFFICULTY
--- NOTE | 2020-05-07 20:15 | NUR ---
Patient transferred from Med-Surg 3 to Room 178. Patient on Airvo with 35L/50% settings.
[2020-05-08] VITALS (8 sets, daily range): BP systolic 99–123; BP diastolic 71–87
--- NOTE | 2020-05-08 00:32 | NUR ---
DATE: 05/07/2020 CONSULTING PHYSICIANS: 1. Dr. Dom Leon with Infectious Disease. 2. Dr. Efrain Elmore with Pulmonology/Critical Care Medicine. SUBJECTIVE: The patient is supine, asleep, easily arousable. Per nursing, the patient has been eating well and is able to work with physical therapy. No new complaints. OBJECTIVE: VITAL SIGNS: Temperature 98.1, heart rate 62, blood pressure 122/81, respirations 20, and oxygen saturation 95%. GENERAL: No acute distress. LUNGS: Currently nonlabored. Rhonchorous breath sounds. AIRVO at 35 L/minute, FiO2 35% with oxygen saturation 96% during encounter. HEENT: EOMI. NECK: Supple. CARDIOVASCULAR: Normal sinus rhythm. ABDOMEN: Soft, nontender. EXTREMITIES: With no edema. No signs or symptoms of DVT. NEUROLOGICAL: GCS 15. Nonfocal. LABORATORY DATA: 05/07: FSBG 91, 90, 105, 158. Lab Holiday. 05/06: WBCs 9.34, hemoglobin 16.2, hematocrit 46.6, platelets 445. Sodium 138, potassium 4.1, chloride 107, CO2 22, BUN 19, creatinine 0.72, estimated GFR greater than 60. Glucose 90. Fingerstick blood glucose levels 91, 121, 119. Calcium 8.3, total bilirubin 0.6, AST 28, ALT 90, alkaline phosphatase 174, total protein 6.7, albumin 2.6. IMAGING: No new chest x-ray results. ASSESSMENT/PLAN: 1. Coronavirus disease-2019 pneumonia with acute respiratory distress syndrome. Continue Decadron, zinc sulfate/vitamin-C/vitamin D, Lovenox, albuterol HFA. He is tolerating the weaning of FiO2. Infectious Disease, Pulmonary/Critical Care Medicine following. 2. Transaminitis. Latest ALT 90, alkaline phosphatase 174. Monitor. 3. Asymptomatic bradycardia with heart rate 50's while asleep. Prophylaxis. Lovenox and Pepcid. Billing code [id number]. Time spent 35 minutes.
[2020-05-08] MEDS: ENOXAPARIN SOD INJ 40 MG/0.4 ML SYR SC SCH ×2 (05:52→15:02)
[2020-05-08 06:59] LABS: BASOPHILS # (AUTO) 0.1 (0.0-0.1); BASOPHILS % 1.4 % (0.0-1.0); EOSINOPHILS # (AUTO) 0.3 (0.0-0.4); EOSINOPHILS % 3.6 % (0.0-6.0); HEMATOCRIT 47.2 % (38.2-49.6); HEMOGLOBIN 16.1 g/dL (14.0-18.0); LYMPHOCYTES # (AUTO) 2.8 (1.0-3.2); LYMPHOCYTES % 35.1 % (18.0-39.1); MEAN CORPUSCULAR HEMOGLOBIN 31.5 pg (28-32); MEAN CORPUSCULAR HGB CONC 34.1 g/dL (31-35); MEAN CORPUSCULAR VOLUME 92.4 fL (81-99); MONOCYTES # (AUTO) 0.7 (0.2-0.8); MONOCYTES % 8.6 % (4.4-11.3); NEUTROPHILS # (AUTO) 4.1 (2.1-6.9); NEUTROPHILS % 50.6 % (38.7-80.0); PLATELET COUNT 378 x10e3/uL (140-360); RED BLOOD COUNT 5.11 x10e6/uL (4.3-5.7)
--- NOTE | 2020-05-08 07:00 | NUR ---
Patient resting comfortably. Shift report given to oncoming nurse.
[2020-05-08] MEDS: INSULIN REGULAR, HUMAN 100 UNIT/1 ML 3ML VIAL SQ SCH ×4 (07:30→22:29)
[2020-05-08 07:47] LABS: BLOOD UREA NITROGEN 19 mg/dL (7-26); BUN/CREATININE RATIO 25 (6-25); CALCIUM 8.3 mg/dL (8.4-10.2); CARBON DIOXIDE 22 mmol/L (22-29); CHLORIDE 106 mmol/L (98-107); CREATININE, SERUM 0.76 mg/dL (0.72-1.25); EST GLOMERULAR FILTRATION RATE > 60 ML/MIN (60-); GLUCOSE 77 mg/dL (74-118); SODIUM 137 mmol/L (136-145)
[2020-05-08] MEDS: ASCORBIC ACID 500 MG TAB PO SCH ×2 (07:55→15:01)
[2020-05-08] MEDS: CHOLECALCIFEROL 400 UNIT TAB PO SCH (07:55)
[2020-05-08] MEDS: FAMOTIDINE 20 MG TAB PO SCH ×2 (07:55→15:01)
[2020-05-08] MEDS: ZINC SULFATE 220 MG CAP PO SCH ×2 (07:55→15:02)
--- NOTE | 2020-05-08 14:24 | Progress Note ---
DATE: SUBJECTIVE: The patient is feeling better. He is slightly less dyspnea. He is still on Airvo, but is only on 20 L with 50% oxygen. PHYSICAL EXAMINATION: VITAL SIGNS: Blood pressure is 108/83 and the saturation is 99%. HEENT: Shows no facial swelling or erythema. The oropharynx normal. LYMPHATIC: Shows no submandibular, cervical, supraclavicular adenopathy. CARDIAC: Reveals regular rate and rhythm with normal S1, S2. LUNGS: Auscultation of lungs reveals rhonchorous breath sounds bilaterally. There is no wheezing. ABDOMEN: Soft and nontender. There is no rebound or guarding. EXTREMITIES: Shows no leg edema or calf tenderness. There is no cyanosis or clubbing. SKIN: Shows no rashes. LABORATORY DATA: White blood cell count is 8, hemoglobin 16.1, and the platelet count is 378. BUN to creatinine ratio is normal. Other electrolytes are within normal limits. IMPRESSION: 1. Acute respiratory failure. 2. Viral pneumonia and COVID-19 infection. 3. Hyperglycemia. 4. Viral hepatitis. PLAN: 1. Continue to wean L flow and oxygen. 2. Complete antibiotics. 3. Continue to monitor and control blood sugars. 4. Physical therapy. Efrain Elmore MD [facility]/MODL /[id number]
--- NOTE | 2020-05-08 16:31 | NUR ---
infectious disease but does note Patient examined chart reviewed and discussed with medical team Slowly getting better The patient is feeling better. He is slightly less dyspnea. He is still on Airvo, but is only on 20 L with 50% oxygen. PHYSICAL EXAMINATION:Both are stable afebrile HEENT normocephalic VITAL SIGNS: Blood pressure is 108/83 and the saturation is 99%. HEENT: Shows no facial swelling or erythema. The oropharynx normal. LYMPHATIC: Shows no submandibular, cervical, supraclavicular adenopathy. CARDIAC: Reveals regular rate and rhythm with normal S1, S2. LUNGS: Auscultation of lungs reveals rhonchorous breath sounds bilaterally. There is no wheezing. ABDOMEN: Soft and nontender. There is no rebound or guarding. EXTREMITIES: Shows no leg edema or calf tenderness. There is no cyanosis or clubbing. SKIN: Shows no rashes. LABORATORY DATA: White blood cell count is 8, hemoglobin 16.1, and the platelet count is 378. BUN to creatinine ratio is normal. Other electrolytes are within normal limits. IMPRESSION: 1. Acute respiratory failure. 2. Viral pneumonia and COVID-19 infection. 3. Hyperglycemia. patient slowly getting better continue with oxygen continue with anticoagulation 3 days since onset of symptoms will be removed of isolation
--- NOTE | 2020-05-08 19:26 | NUR ---
Patient received lying in bed. AAO x 4. Denies pain or discomfort at this time. Respirations even and non-labored on 15L High Flow NC. Call light within reach.
[2020-05-08] MEDS: ZOLPIDEM TARTRATE 5 MG TAB PO PRN (22:30)
[2020-05-09] VITALS (7 sets, daily range): BP systolic 100–131; BP diastolic 73–83
[2020-05-09] MEDS: ENOXAPARIN SOD INJ 40 MG/0.4 ML SYR SC SCH ×2 (06:00→14:56)
--- NOTE | 2020-05-09 07:00 | NUR ---
Patient resting comfortably. Shift report given to oncoming nurse regarding patient's status.
[2020-05-09] MEDS: INSULIN REGULAR, HUMAN 100 UNIT/1 ML 3ML VIAL SQ SCH ×4 (07:30→21:00)
[2020-05-09] MEDS: CHOLECALCIFEROL 400 UNIT TAB PO SCH (08:15)
[2020-05-09] MEDS: FAMOTIDINE 20 MG TAB PO SCH ×2 (08:15→14:56)
[2020-05-09] MEDS: DOCUSATE SODIUM 100 MG CAP PO SCH ×2 (08:15→14:56)
[2020-05-09] MEDS: ASCORBIC ACID 500 MG TAB PO SCH ×2 (08:15→14:56)
[2020-05-09] MEDS: POLYETHYLENE GLYCOL 3350 17 GM PACK PO SCH ×2 (08:15→14:56)
[2020-05-09] MEDS: ZINC SULFATE 220 MG CAP PO SCH ×2 (08:16→14:56)
--- NOTE | 2020-05-09 10:19 | NUR ---
infectious disease progress note doing well no new recommendation Patient examined chart reviewed and discussed with medical team Slowly getting better wean oxygen as tolerated PHYSICAL EXAMINATION:Both are stable afebrile HEENT normocephalic VITAL SIGNS: Blood pressure is 108/83 and the saturation is 99%. HEENT: Shows no facial swelling or erythema. The oropharynx normal. LYMPHATIC: Shows no submandibular, cervical, supraclavicular adenopathy. CARDIAC: Reveals regular rate and rhythm with normal S1, S2. LUNGS: Auscultation of lungs reveals rhonchorous breath sounds bilaterally. There is no wheezing. ABDOMEN: Soft and nontender. There is no rebound or guarding. EXTREMITIES: Shows no leg edema or calf tenderness. There is no cyanosis or clubbing. SKIN: Shows no rashes. LABORATORY DATA: White blood cell count is 8, hemoglobin 16.1, and the platelet count is 378. BUN to creatinine ratio is normal. Other electrolytes are within normal limits. IMPRESSION: 1. Acute respiratory failure. 2. Viral pneumonia and COVID-19 infection. 3. Hyperglycemia. patient slowly getting better continue with oxygen continue with anticoagulation 3 days since onset of symptoms will be removed of isolation wean oxygen as tolerated Discharge planning for this week
--- NOTE | 2020-05-09 15:39 | Progress Note ---
DATE: Pulmonary Critical Care Progress Note SUBJECTIVE: The patient is currently doing better. He complains of constipation. He was taken off Airvo yesterday and is now on nasal cannula at 8 L. He still has some dyspnea with exertion. PHYSICAL EXAMINATION: VITAL SIGNS: Blood pressure is 131/83, saturation is 100% on nasal cannula at 8 L. His temperature is 97.4. Pulse is 74. HEENT: Shows no facial swelling or erythema. The oropharynx is normal. LYMPHATIC: Shows no submandibular, cervical or supraclavicular adenopathy. NECK: Shows no JVD or thyromegaly. There is no nuchal rigidity. CARDIAC: Reveals regular rate and rhythm with normal S1 and S2. LUNGS: Auscultation of lungs reveals crackles at the bases. There is no wheezing. ABDOMEN: Soft and nontender. There is no rebound or guarding. EXTREMITIES: Shows no leg edema or calf tenderness. There is no cyanosis or clubbing. SKIN: Shows no rashes. NEUROLOGICAL: Shows no focal abnormalities. LABORATORY DATA: White blood cell count is 8 and hemoglobin is 16.1. The platelet count is 373. The BUN to creatinine ratio is normal. The other electrolytes are within normal limits. RADIOGRAPHIC DATA: Chest x-ray shows bilateral infiltrates. IMPRESSION: 1. Acute respiratory failure. 2. Viral pneumonia andCOVID-19 infection. 3. Hyperglycemia. 4. Viral hepatitis. PLAN: 1. Continue to wean oxygen. 2. Physical therapy. 3. Continue to monitor and control blood sugars. Efrain Elmore MD [facility]/MODL /[id number]
--- NOTE | 2020-05-09 22:00 | NUR ---
02 sat 97% on high flow 8L NC, 02 decreased to 7L NC. Tolerating 02 sat 97% Will continue to monitor.
[2020-05-10] VITALS: BP 92/66
--- NOTE | 2020-05-10 01:00 | NUR ---
02 sat 97% on high flow 7L NC, 02 decreased to 6L NC. Tolerating 02 sat 96% Will continue to monitor.
[2020-05-10] MEDS ORDERED: SOD PHOSPHATE/SOD BIPHOSPHATE ENEMA 132 ML BTL PR PRN (01:15)
[2020-05-10 04:00] VITALS: BP 93/53
[2020-05-10] MEDS ORDERED: BISACODYL 10 MG SUPP PR ONE (05:00)
--- NOTE | 2020-05-10 05:30 | NUR ---
02 sat 100% on high flow 6L NC, 02 decreased to 5L NC. Tolerating 02 sat 99 to 100% Will continue to monitor.
[2020-05-10] MEDS: ENOXAPARIN SOD INJ 40 MG/0.4 ML SYR SC SCH (06:10)
--- NOTE | 2020-05-10 06:10 | NUR ---
Rectal exam performed, stool high, no stool able to be disimpacted at this time. Dulcolax supp given time one. Tolerated well. Instructed to notify nurse if able to have BM.
--- NOTE | 2020-05-10 06:17 | NUR ---
02 sat 100% on high flow 5L NC, 02 decreased to 4L NC. Tolerating 02 sat 99% Will continue to monitor.
[2020-05-10] MEDS: INSULIN REGULAR, HUMAN 100 UNIT/1 ML 3ML VIAL SQ SCH ×3 (07:30→16:16)
[2020-05-10 07:51] LABS: BASOPHILS # (AUTO) 0.1 (0.0-0.1); BASOPHILS % 0.8 % (0.0-1.0); EOSINOPHILS # (AUTO) 0.3 (0.0-0.4); EOSINOPHILS % 3.6 % (0.0-6.0); HEMATOCRIT 46.1 % (38.2-49.6); HEMOGLOBIN 15.7 g/dL (14.0-18.0); LYMPHOCYTES % 21.9 % (18.0-39.1); MEAN CORPUSCULAR HEMOGLOBIN 31.6 pg (28-32); MEAN CORPUSCULAR HGB CONC 34.1 g/dL (31-35); MEAN CORPUSCULAR VOLUME 92.8 fL (81-99); MONOCYTES # (AUTO) 0.7 (0.2-0.8); MONOCYTES % 7.7 % (4.4-11.3); NEUTROPHILS % 65.5 % (38.7-80.0); PLATELET COUNT 317 x10e3/uL (140-360); RED BLOOD COUNT 4.97 x10e6/uL (4.3-5.7); RED CELL DISTRIBUTION WIDTH 13.2 % (11.7-14.4)
[2020-05-10 08:00] VITALS: BP 117/85
[2020-05-10 08:08] LABS: ANION GAP 11.1 mmol/L (8-16); BLOOD UREA NITROGEN 12 mg/dL (7-26); BUN/CREATININE RATIO 18 (6-25); CALCIUM 8.2 mg/dL (8.4-10.2); CARBON DIOXIDE 24 mmol/L (22-29); CHLORIDE 104 mmol/L (98-107); CREATININE, SERUM 0.68 mg/dL (0.72-1.25); EST GLOMERULAR FILTRATION RATE > 60 ML/MIN (60-); GLUCOSE 88 mg/dL (74-118); PHOSPHORUS 2.8 MG/DL (2.3-4.7); POTASSIUM 4.1 mmol/L (3.5-5.1); SODIUM 135 mmol/L (136-145)
[2020-05-10 08:48] VITALS: BP 117/85
[2020-05-10] MEDS: FAMOTIDINE 20 MG TAB PO SCH ×2 (08:51→16:25)
[2020-05-10] MEDS: DOCUSATE SODIUM 100 MG CAP PO SCH ×2 (08:51→16:25)
[2020-05-10] MEDS: POLYETHYLENE GLYCOL 3350 17 GM PACK PO SCH ×2 (08:51→16:25)
[2020-05-10] MEDS: ASCORBIC ACID 500 MG TAB PO SCH ×2 (08:52→16:25)
[2020-05-10] MEDS: CHOLECALCIFEROL 400 UNIT TAB PO SCH (08:52)
[2020-05-10] MEDS: ZINC SULFATE 220 MG CAP PO SCH ×2 (08:52→16:25)
[2020-05-10 12:00] VITALS: BP 110/80
--- NOTE | 2020-05-10 13:54 | NUR ---
infectious disease progress note doing well no new recommendation Patient examined chart reviewed and discussed with medical team no new complaints Slowly getting better wean oxygen as tolerated PHYSICAL EXAMINATION:Both are stable afebrile HEENT normocephalic VITAL SIGNS: Blood pressure is 108/83 and the saturation is 99%. HEENT: Shows no facial swelling or erythema. The oropharynx normal. LYMPHATIC: Shows no submandibular, cervical, supraclavicular adenopathy. CARDIAC: Reveals regular rate and rhythm with normal S1, S2. LUNGS: Auscultation of lungs reveals rhonchorous breath sounds bilaterally. There is no wheezing. ABDOMEN: Soft and nontender. There is no rebound or guarding. EXTREMITIES: Shows no leg edema or calf tenderness. There is no cyanosis or clubbing. SKIN: Shows no rashes. LABORATORY DATA: White blood cell count is 8, hemoglobin 16.1, and the platelet count is 378. BUN to creatinine ratio is normal. Other electrolytes are within normal limits. IMPRESSION: 1. Acute respiratory failure. 2. Viral pneumonia and COVID-19 infection. 3. Hyperglycemia. patient slowly getting better continue with oxygen continue with anticoagulation 3 days since onset of symptoms will be removed of isolation wean oxygen as tolerated Discharge planning for this week discussed medical team
--- NOTE | 2020-05-10 14:19 | Progress Note ---
DATE: SUBJECTIVE: The patient is doing better. His oxygen has been decreased to 3 L. He still has some dyspnea on exertion. PHYSICAL EXAMINATION: VITAL SIGNS: Blood pressure is 110/80 and saturation is 99%. The pulse is 76. HEENT: Shows no facial swelling or erythema. The oropharynx is normal. LYMPHATIC: Shows no submandibular, cervical, or supraclavicular adenopathy. CARDIAC: Reveals regular rate and rhythm with normal S1 and S2. LUNGS: Auscultation of lungs reveals rhonchorous breath sounds bilaterally. There is no wheezing. ABDOMEN: Soft and nontender. There is no rebound or guarding. IMPRESSION: 1. Acute respiratory failure. 2. Viral pneumonia and COVID-19 infection. 3. Hyperglycemia. 4. Viral hepatitis. PLAN: 1. Continue to wean oxygen. 2. Physical therapy. 3. Continue to monitor and control blood sugars. Efrain Elmore MD [facility] /[id number]
[2020-05-10] MEDS ORDERED: COLACE100 MG PO (14:40)
[2020-05-10] MEDS ORDERED: VENTOLIN HFA18 GM INH (14:40)
[2020-05-10] MEDS ORDERED: ACETAMINOPHEN325 M1 PO (14:40)
[2020-05-10] MEDS ORDERED: ASCORBIC ACID500 MG PO (14:40)
[2020-05-10] MEDS ORDERED: Cholecalciferol PO (14:40)
[2020-05-10] MEDS ORDERED: ZINC SULFATE220 M1 PO (14:40)
[2020-05-10 16:00] VITALS: BP 116/87
--- NOTE | 2020-05-10 16:50 | NUR ---
Patient received discharge order from Vicente Bui NP of Dr. Ambrocio. Patient had IV removed at 1645. Patient was given discharge instructions, prescriptions, and answered all questions. Patient's 2 IVs were removed and covered with a C/D/I dressing. Addendum: 05/10/20 at 1732 by Alicia Dyer RN Patient wheeled to daughter's car at 1720. No other issues or complaints.
--- NOTE | 2020-05-10 17:00 | NUR ---
Nutrition Screen Note RD Recommendation for Physician: - Continue current diet Plan of Care: RD following, monitoring for tolerance and adequacy Nutrition reason for involvement: follow up Primary Diagnose(s): hypoxia, PNA, COVID-19 PMH: no PMH on admit Ht: 69 in Wt: 195 lb BMI: 28.8 kg/m2 IBW: [address] Assessment: 05/10: Follow up. Chart reviewed. It is recorded that pt is consuming 75-100% of meals. Will continue to monitor. 05/03: 59 YOM admitted for hypoxia and pneumonia due to COVID-19. Pt evaluated today for LOS. No indicted poor intake or wt loss at admit. Pt with good po intake currently, ~100% of meals. No GI distress, LBM 05/01. Skin intact. Labs and meds reviewed. Chart reviewed. Will continue to monitor. Current Diet: Cardiac Malnutrition Evaluation (05/03/20) The patient does not meet criteria for a specified degree of malnutrition at this time. Will re-evaluate at follow-up as appropriate. Pt currently on isolation protocol for COVID-19. Diet Education Needs Assessment: Diet education not indicated Diet tolerance: tolerating po Nutrition Care Level: low Signed: Preeti Winters, RD, LD
--- NOTE | 2020-05-12 20:18 | NUR ---
05/08/2020 Progress Note dictated:
--- NOTE | 2020-05-12 20:19 | NUR ---
Discharge Summary dictated; job#[id number]
--- NOTE | 2020-05-12 20:19 | NUR ---
05/09/2020 Progress Note dictated; job #[id number]
--- NOTE | 2020-05-12 20:40 | Progress Note ---
DATE: 05/08/2020 DATE OF SERVICE: May 08, 2020 CONSULTING PHYSICIANS: Dr. Dom Leon with Infectious Disease and Dr. Efrain Elmore with Pulmonology. SUBJECTIVE: RN reports that the patient has been eating well, but is constipated. The patient denies cough. He has been getting up to the bedside commode, but unable to use it. He is out of bed with bathroom privileges. He was changed from Airvo to high-flow nasal cannula this morning. OBJECTIVE: VITAL SIGNS: Temperature 98.1, pulse 59, blood pressure 104/80, respirations 18, and oxygen saturation 98%. GENERAL: No acute distress. LUNGS: Respirations unlabored. Rhonchorous breath sounds. Oxygen at 15 L/minute via high-flow, humidified oxygen via nasal cannula. HEENT: EOMI. NECK: Supple. CARDIOVASCULAR: Regular rate and rhythm. Normal sinus rhythm. ABDOMEN: Bowel sounds positive. Soft, nontender. EXTREMITIES: No edema. No signs or symptoms of DVT. NEUROLOGICAL: GCS 15. Nonfocal. LABORATORY DATA: WBCs 8.01, hemoglobin 16.1, hematocrit 47.2, platelets 378. Sodium 137, potassium 4.0, chloride 106, CO2 of 22, anion gap 13, BUN 19, creatinine 0.76, estimated GFR greater than 60, glucose 77, calcium 8.3. Fingerstick blood glucose levels 86, 101, 156. IMAGING: No new chest x-ray results. ASSESSMENT AND PLAN: 1. COVID-19 pneumonia. Continue Decadron, zinc sulfate, vitamin C, vitamin D, Levenox, albuterol HFA. Continue to wean oxygen as tolerated. The patient was switched from Airvo to high-flow humidified nasal cannula this morning. Infectious Disease and Pulmonology continued to follow. 2. Transaminitis. Monitor. 3. Asymptomatic bradycardia, heart rate 59, monitor. 4. Prophylaxis. Lovenox and Pepcid. Billing code [id number]. Time spent 35 minutes. Dictated by Vicente Bui NP Lew Ambrocio MD HWP/MODL /[id number]
--- NOTE | 2020-05-12 21:01 | Progress Note ---
DATE: 05/09/2020 SUBJECTIVE: Currently, no cough. The patient is getting out of bed with physical therapy. He has been eating well. The patient was started on Colace and MiraLAX both b.i.d. today, but still no bowel movement. OBJECTIVE: VITAL SIGNS: Temperature 97.3, pulse 68, blood pressure 112/75, respirations 18, and oxygen saturation 98%. GENERAL: No acute distress. LUNGS: Respirations even and nonlabored. He is currently on high-flow humidified oxygen via nasal cannula at 7 L/min. HEENT: EOMI. NECK: Supple. CARDIOVASCULAR: Normal sinus rhythm. ABDOMEN: Bowel sounds positive. Soft, nontender. EXTREMITIES: With no edema. No signs of DVT. NEUROLOGIC: GCS is 15, nonfocal. LABORATORY DATA: Fingerstick blood glucose levels 108, 153, 108. IMAGING: No new chest x-ray results. ASSESSMENT AND PLAN: 1. COVID-19 pneumonia. Pulmonology and Infectious Disease. Continue to follow. He is tolerating weaning quite well. He made substantial progress, yesterday morning he was on Airvo and has been weaned on high-flow humidified nasal cannula from 15 L/min to 7 L/min. Continue Lovenox, albuterol HFA, vitamin C, vitamin D, zinc sulfate, and Decadron. The patient received Dulcolax suppository once RN instructed to disimpact p.r.n. Order entered for Fleet's enema p.r.n. as he remains constipated. 2. Transaminitis. Last ALT 90 and alkaline phosphatase 174. Recheck LFTs soon. * prophylaxis. Lovenox and Pepcid. DISPOSITION: Orders entered to transfer to the floor. BILLING CODE: [id number]. TIME SPENT: 35 minutes. Dictated by Vicente Bui, GLORIA MD SAAD HernandezP/NIMOL /[id number]
--- NOTE | 2020-05-12 21:10 | Discharge Summary ---
The patient is seen and evaluated on May 10, 2020. PRIMARY CARE PHYSICIAN: Rui Berg MD CONSULTING PHYSICIANS: Dr. Efrain Elmore with Pulmonology and Dr. Dom Leon with Infectious Disease. CHIEF COMPLAINT: COVID. HISTORY OF PRESENT ILLNESS: The patient is a 59-year-old male, who was positive for COVID six days prior to arrival. He had fever, chills, cough and myalgia for 2 weeks and arrived with marked dyspnea with oxygen saturations in the 80s on room air. PAST MEDICAL HISTORY: None. PAST SURGICAL HISTORY: None. FAMILY HISTORY: Noncontributory. SOCIAL HISTORY: Noncontributory. No tobacco. No alcohol. No illicit drugs. ALLERGIES: PENICILLIN. ADMITTING DIAGNOSES: 1. COVID-19 pneumonia with respiratory distress. 2. Transaminitis. DISCHARGE DIAGNOSES: 1. COVID-19 pneumonia with respiratory distress. 2. Transaminitis. 3. Viral hepatitis. During his stay, the patient was on azithromycin, Rocephin, Decadron, vitamin C, vitamin D, zinc sulfate, and Lovenox. Albuterol HFA was also utilized and his oxygen was weaned down. Initially, he required Airvo, but as time progressed and patient improved, he was switched to high-flow humidified oxygen via high-flow nasal cannula. At the time of discharge, he was on 3 L of oxygen via nasal cannula. No change in physical exam. Vital signs on the day of discharge, temperature 97.7, pulse 81, blood pressure 93/53, respirations 20, oxygen saturation 100%. Towards the end of his stay, he was constipated. He received several medications including Colace, MiraLAX and Dulcolax suppository in order to help him have a bowel movement. Last bowel movement documented was 05/07. On 04/27, chest x-ray showed interval increase in bilateral multifocal pneumonia and on 05/05, chest x-ray showed unchanged multifocal pneumonia/viral pneumonitis. Labs on 05/10, the day of discharge, WBC 9.19, hemoglobin 15.7, hematocrit 46.1, platelets 317, thrombocytosis significantly improved. Highest platelet count was 590 on 04/30. On 05/10, sodium 135, potassium 4.1, chloride 104, CO2 of 24, anion gap 11.1, BUN 12, creatinine 0.68, estimated GFR greater than 60, glucose 88, calcium 8.2, phosphorus 2.8, magnesium 2.0. Fingerstick blood glucose level 119. At the time of discharge, the patient still had some dyspnea on exertion. He was sent home on home oxygen. The patient was seen and examined by Dr. Leon on 05/10. Per his note, the patient is slowly getting better. Continue with oxygen. Continue with anticoagulation 3 days since onset of symptoms, will be removed of isolation. Wean oxygen as tolerated. The patient also seen and evaluated by Dr. Elmore. The patient will be discharged on cardiac diet. Activity level as tolerated. Follow up with PCP, Dr. Berg in 2 weeks. Follow up with Dr. Leon in 2 weeks. Dictated by Vicente Bui NP Lew Ambrocio MD HWP/NIMOL /[id number]
== END 2020-05-10 17:20 | disposition home or self-care (01) | DRG 177 ==
LOC: ER 10:35 → ERHOLD 11:20 → IMCU 15:14 → COVIDICU 04-29 00:32 → MED/SURG3 05-07 05:56 → IMCU 05-07 20:16
PROVIDERS: ADMIT Internal Medicine; ATTEND Internal Medicine
DX: U07.1 COVID-19 (principal); J12.9 Viral pneumonia, unspecified; J96.00 Acute respiratory failure, unspecified whether with hypoxia or hypercapnia; B19.9 Unspecified viral hepatitis without hepatic coma; E87.2 Acidosis; R74.0 Nonspecific elevation of levels of transaminase and lactic acid dehydrogenase [LDH]; R00.1 Bradycardia, unspecified; R73.9 Hyperglycemia, unspecified
CPT/HCPCS: 36415; 71045; 71260; 80048; 80053; 80076; 82150; 82550; 82553; 82948; 83036; 83690; 83735; 83880; 84100; 84443; 84484; 85025; 85610; 85730; 87040; 87071; 87205; 93005; 93306; 96361; 96372; 99284; J0456; J0696; J1100; J1650; J1817; J3370; J7030; J7050; Q9967; U0002

== ENCOUNTER → 2024-10-17 | Day surgery (SDC) | payer BC, OTHER ==
[~2024-10-17] MED LIST: ACETAMINOPHEN325 M1 PO; ASCORBIC ACID500 MG PO; COLACE100 MG PO; Cholecalciferol PO; LIDOCAINE HCL 2% LOCAL INJ 5 ML SDV VIAL INJ ONE; MIDAZOLAM HCL 2 MG/2 ML VIAL ONE; PROPOFOL IV EMULSION 10 MG/ML 20 ML VIAL ONE; VENTOLIN HFA18 GM INH; ZINC SULFATE220 M1 PO
[2024-10-17] MEDS: LACTATED RINGER'S 1,000 ML ONE (13:52)
[2024-10-17 14:33] VITALS: TEMP 97.8
[2024-10-17 15:24] VITALS: BP 128/85; PULSE 98; RESP 16; O2SAT 99
== END | disposition home or self-care (01) ==
LOC: OR 12:07
PROVIDERS: ATTEND Internal Medicine Gastroenterology
DX: Z12.11 Encounter for screening for malignant neoplasm of colon (principal); D12.3 Benign neoplasm of transverse colon; K57.30 Diverticulosis of large intestine without perforation or abscess without bleeding; K64.8 Other hemorrhoids; R19.5 Other fecal abnormalities; R14.0 Abdominal distension (gaseous); R03.0 Elevated blood-pressure reading, without diagnosis of hypertension; Z88.0 Allergy status to penicillin
CPT/HCPCS: 45380; 45385; 93005; J2003; J2250; J2704; J7121